=== PATIENT | female | born 1950 | race Caucasian/White ===

== ENCOUNTER 2020-06-10 16:49 | Outpatient (REF) | payer MEDICARE, OTHER, SELFPAY | END 2020-06-10 16:50 | disposition home or self-care (01) | LOC: HO.LNP 16:49 | PROVIDERS: Visit Provider Nurse Practitioner Family | DX: Z20.828 Contact with and (suspected) exposure to other viral communicable diseases (principal) | CPT/HCPCS: U0003 ==

== ENCOUNTER 2020-06-14 13:28 | Inpatient (IN) | payer MEDICARE, OTHER, SELFPAY ==
[2020-06-14] VITALS (20 sets, daily range): BP systolic 81–127; BP diastolic 40–107; PULSE 120–213; RESP 16–24; TEMP 36.6–37; O2SAT 95–100; BMI 26.6; BMI 21.0
--- NOTE | 2020-06-14 15:19 | XR_ITS ---
EXAMINATION: XR CHEST CLINICAL INFORMATION: No history provided. COMPARISON: None TECHNIQUE: Frontal portable view of the chest was obtained. FINDINGS: Devices overlie the patient. Slight tortuosity of the aorta. The cardiac silhouette is slightly globular and mildly prominent. There is no hilar mass. No vascular congestion or edema. No dense consolidation or major zone atelectasis. There is a vague density superimposing over the posterior left 11th rib. This is nonspecific and could overlie the patient. No pleural fluid or pneumothorax. There are osteophytes in the spine. XR/XR chest 1V IMPRESSION: No dense focal pneumonia. No edema. Nonspecific small density superimposes over the posterior left 11th rib on the frontal projection. Possibilities include calcified costal cartilage.
--- NOTE | 2020-06-14 15:19 | ECG_ITS ---
Test Reason : CHEST PAIN Blood Pressure : / mmHG Vent. Rate : 202 BPM Atrial Rate : 250 BPM P-R Int : 000 ms QRS Dur : 082 ms QT Int : 232 ms P-R-T Axes : 000 000 180 degrees QTc Int : 425 ms Atrial fibrillation with rapid ventricular response Nonspecific ST and T wave abnormality Abnormal ECG No previous ECGs available Referred By: Bhavin Cedillo Electronically Signed By:TERESA BRONSON MD
--- NOTE | 2020-06-14 15:19 | ECG_ITS ---
Test Reason : TACHYCARDIA Blood Pressure : / mmHG Vent. Rate : 147 BPM Atrial Rate : 153 BPM P-R Int : 000 ms QRS Dur : 094 ms QT Int : 296 ms P-R-T Axes : 000 008 125 degrees QTc Int : 463 ms Atrial fibrillation with rapid ventricular response Nonspecific ST and T wave abnormality Abnormal ECG When compared with ECG of 14-JUN-2020 15:13, No significant changes seen Heart rate has decreased Referred By: Bhavin Cedillo Electronically Signed By:TERESA BRONSON MD
[2020-06-14 15:26] LABS: Basophils Absolute Auto 0.1 X10*3/uL (0.0-0.2); Basophils Percent Auto 0.2 % (0-2); Hematocrit 34.6 % (37-47); Hemoglobin 11.3 g/dl (12.0-16.0); Imm Gran Abs Auto 0.86 X10*3/uL (0.00-0.03); Lymphocytes Absolute Auto 1.5 X10*3/uL (1.2-4.9); Lymphocytes Percent Auto 5.3 % (20-40); Mean Corpuscular HGB Conc 32.7 g/dl (31.0-35.0); Mean Corpuscular Hemoglobin 30.1 pg (27.0-33.0); Mean Corpuscular Volume 92.3 fL (80-98); Mean Platelet Volume 8.4 fL (9.4-12.3); Monocytes Percent Auto 3.5 % (2-11); Neutrophils Absolute Auto 25.6 X10*3/uL (2.0-8.3); Platelet Count 455 X10*3/uL (160-400); Red Blood Count 3.75 X10*6/uL (4.20-5.50); Red Cell Distribution Width 13.8 % (11.0-16.0); SCAN SMEAR FLAG 1
[2020-06-14 15:27] LABS: MANUAL DIFF FLAG NO
[2020-06-14] MEDS: 0.9 % Sodium Chloride 500 ML 999 ML IVCONT (15:28)
--- NOTE | 2020-06-14 15:31 | PC.NURSE ---
still tachy 200s after 6 and 12 of adenosine. awaiting pharmacy to bring cardizem
[2020-06-14] MEDS: dilTIAZem HCL 50 MG/10 ML VIAL 20 MG IVPUSH ×2 (15:34→15:50)
[2020-06-14] MEDS: dilTIAZem HCL 125 MG in 0.9 % Sodium Chloride 100 ML IVCONT (15:42)
[2020-06-14] MEDS: LORazepam 2 MG/ML VIAL 0.5 MG IVPUSH (16:11)
[2020-06-14 16:13] LABS: Magnesium 2.2 mg/dL (1.6-2.6)
[2020-06-14 16:15] LABS: Alanine Aminotransferase 54 U/L (0-31); Albumin Level 3.2 g/dL (3.5-5.0); Alkaline Phosphatase 483 U/L (39-117); Anion Gap 26 (12-20); Aspartate Amino Transferase 61 U/L (5-31); Bilirubin Direct 0.4 mg/dL (0.0-0.5); Bilirubin Total 0.6 mg/dL (0.0-1.0); Blood Urea Nitrogen 33 mg/dL (9-16); Calcium 8.4 mg/dL (8.4-10.2); Carbon Dioxide 13 mmol/L (22-29); Chloride 98 mmol/L (96-108); Creatinine Clr Calc Pharmacy 40.5; Estimated Glomerular Filt Rate 37; Glucose Random 138 mg/dL (60-115); Potassium 4.7 mmol/l (3.3-5.1); Sodium 132 mmol/L (135-145); Total Protein 7.1 g/dL (6.5-8.0)
[2020-06-14 16:17] LABS: B Type Natriuretic Peptide 1293 pg/mL (<100)
[2020-06-14 16:23] LABS: COVID-19 Test Negative (Negative)
--- NOTE | 2020-06-14 16:25 | PC.NURSE ---
pt medicated per emar. continues rapid a fib in 160-180. aware. aware of elevated trop. states to await cardiology for next step.
--- NOTE | 2020-06-14 16:35 | ED.GENADULT ---
HPI - General Adult General Chief complaint: General Medical Stated complaint: weakness,vomiting Time Seen by Provider: 06/14/20 15:18 Source: patient Mode of arrival: ambulatory Limitations: no limitations History of Present Illness HPI narrative: 69-year-old female walked in with the symptoms of generalized weakness for the past week, patient was seen at urgent care and was tested for COVID test is pending, patient on arrival to the ED found to have tachycardia above 200 beats per minutes, patient was placed on the monitor, patient was given adenosine 6 mg followed by adenosine 12 mg with very short temporary slow down of her heart rate, patient was given Cardizem 20 mg was slow of her heart rate to 160s, repeat Cardizem of 20 mg IV push heart rate still in the 160 EKG showing atrial fibrillation, patient has no chest pain or shortness of breath at this point. Patient was placed on Cardizem drip. Cardiology consult was obtained at this point. Related Data Allergies Allergy/AdvReac Type Severity Reaction Status Date / Time No Known Allergies Allergy Verified 06/14/20 15:18 Review of Systems Review of Systems: All other systems are reviewed and are negative Constitutional: Reports as per HPI and Reports no additional constitutional complaints Eyes: Reports as per HPI and Reports no additional eye complaints Reports system reviewed and no additional complaints, except as documented Cardiovascular: Reports as per HPI and Reports no additional cardiovascular complaints Respiratory: Reports as per HPI and Reports no additional respiratory complaints Gastrointestinal: Reports as per HPI and Reports no additional gastrointestinal complaints Genitourinary: Reports no additional female genitourinary complaints Musculoskeletal: Reports no additional musculoskeletal complaints Skin/Breast: Reports system reviewed and no additional complaints, except as docu Psychiatric: Reports no additional psychiatric complaints Endocrine: Reports no additional endocrine complaints Hematologic/Lymphatic: Reports no additional hematologic/lymphatic complaints Allergic/Immunologic: Reports no additional allergic/immunologic complaints Reports system reviewed and no additional complaints, except as documented and Reports Abnormal speech present [facility] Past Medical History Medical History No known health problems Social History Social History Use of substances other than those prescribed or required for medical reasons: No Advance Directives: No Advance Directives Information Provided: No Physical Exam Vital Signs: Vital Signs: Last Vital Signs Temp 98.5 F 06/14/20 15:19 Pulse 170 H 06/14/20 16:13 Resp 18 06/14/20 16:13 BP 104/60 06/14/20 16:13 Pulse Ox 100 06/14/20 16:13 Body Mass Index 26.6 Vital signs have been reviewed as normal and appeared to be correct. Blood pressure normal. Tachycardia. Respiration rate normal. Temperature normal. Oxygen saturation normal. Appearance: Alert. Oriented X3. Anxious Head: Normal external exam. Normocephalic. Atraumatic. No Escudero signs noted. No raccoon eyes noted Eyes: PERRLA. EOMI. Conjunctiva and sclera normal. Eyelids normal. ENT: EAC normal. TM's Normal. Pharynx normal. Uvula midline. Moist mucous membranes. No trismus noted. No drooling noted. No muffled voice noted. Neck: Normal inspection. Neck supple. FROM. No adenopathy. Thyroid Normal. No meningeal signs. No neck mass noted. CVS: Rapid and irregular heart rate were will the above 200 beats per minutes.. Heart sound normal. No murmurs noted. Pulses normal throughout. Respiratory: No respiratory distress. Painless inspiration. Breath sounds normal. No wheezes/rales/rhonchi noted. Chest nontender. No accessory muscle usage noted or decreased air movement noted. Abdomen: Soft and nontender. Bowel sounds normal in all 4 quadrants. No distention noted. No organomegaly noted. No visible injury noted. Back: No CVA tenderness. Full range of motion noted. Skin: Skin warm and dry. Normal skin color. Normal skin turgor. No rashes/lesions/lacerations noted. Extremities: No lower extremity edema. Extremities exhibit normal range of motion. Extremities nontender. Neuro: Oriented X 3. No motor deficit. No sensory deficit. Reflexes normal. Medical Decision Making MDM Narrative Medical decision making narrative: Assessment and plan. 69-year-old woman presented with symptoms of generalized weakness for the past 5 days and found to have a rapid AFib. 1. Attempt slow down the heart rate used a [place] 6 mg followed by 12 mg, then Cardizem 20 mg x 2 followed by Cardizem drip now she at the maximum of 1 5 milligram/hour patient heart rate is in the 160s,. 2. The case discussed with Dr. Acosta (mechanic general operational test) recommended no immediate cardioversion patient is stable no chest pain and holding blood pressure , recommended 1 dose of Lopressor 25 mg p.o. and load her up with digoxin. And Lovenox. 3. Admit the patient for further cardiology monitoring. Lab Data Lab results narrative: Leukocytosis. Result diagrams: 06/14/20 15:21 06/14/20 15:21 Labs: Lab Results 06/14/20 06/14/20 06/14/20 Range/Units 15:19 15:20 15:21 WBC 29.0 H (4.8-10.8) X10*3/uL RBC 3.75 L (4.20-5.50) X10*6/uL Hgb 11.3 L (12.0-16.0) g/dl Hct 34.6 L (37-47) % MCV 92.3 (80-98) fL MCH 30.1 (27.0-33.0) pg MCHC 32.7 (31.0-35.0) g/dl RDW 13.8 (11.0-16.0) % Plt Count 455 H (160-400) X10*3/uL MPV 8.4 L (9.4-12.3) fL Immature Gran % (Auto) 3.0 H (0.0-0.4) % Neut % (Auto) 88.0 H (45-73) % Lymph % (Auto) 5.3 L (20-40) % [place] % (Auto) 3.5 (2-11) % Eos % (Auto) 0.0 (0-4) % Baso % (Auto) 0.2 (0-2) % Lymph # (Auto) 1.5 (1.2-4.9) X10*3/uL [place] # (Auto) 1.0 (0.1-1.2) X10*3/uL Eos # (Auto) 0.0 (0.0-0.4) X10*3/uL Baso # (Auto) 0.1 (0.0-0.2) X10*3/uL Abs Immat Gran (auto) 0.86 H (0.00-0.03) X10*3/uL Absolute Neuts (auto) 25.6 H (2.0-8.3) X10*3/uL Absolute Nucleated RBC 0.000 (0.0-0.012) X10*3/uL Nucleated RBC % (auto) 0.0 (0.0-0.2) /100WBC Sodium (135-145) mmol/L Potassium (3.3-5.1) mmol/l Chloride (96-108) mmol/L Carbon Dioxide (22-29) mmol/L Anion Gap (12-20) BUN (9-16) mg/dL Creatinine (0.5-1.4) mg/dL Estim Creat Clear Calc Estimated GFR Random Glucose (60-115) mg/dL Calcium (8.4-10.2) mg/dL Magnesium 2.2 (1.6-2.6) mg/dL Total Bilirubin (0.0-1.0) mg/dL Direct Bilirubin (0.0-0.5) mg/dL AST (5-31) U/L ALT (0-31) U/L Alkaline Phosphatase (39-117) U/L Troponin I High Sens 2062.7 H (<3.5-17.0) ng/L B-Natriuretic Peptide 1293 H (<100) pg/mL Total Protein (6.5-8.0) g/dL Albumin (3.5-5.0) g/dL COVID-19 (POLI) (Negative) COVID-19 Clin Com 06/14/20 06/14/20 Range/Units 15:21 15:40 WBC (4.8-10.8) X10*3/uL RBC (4.20-5.50) X10*6/uL Hgb (12.0-16.0) g/dl Hct (37-47) % MCV (80-98) fL MCH (27.0-33.0) pg MCHC (31.0-35.0) g/dl RDW (11.0-16.0) % Plt Count (160-400) X10*3/uL MPV (9.4-12.3) fL Immature Gran % (Auto) (0.0-0.4) % Neut % (Auto) (45-73) % Lymph % (Auto) (20-40) % [place] % (Auto) (2-11) % Eos % (Auto) (0-4) % Baso % (Auto) (0-2) % Lymph # (Auto) (1.2-4.9) X10*3/uL [place] # (Auto) (0.1-1.2) X10*3/uL Eos # (Auto) (0.0-0.4) X10*3/uL Baso # (Auto) (0.0-0.2) X10*3/uL Abs Immat Gran (auto) (0.00-0.03) X10*3/uL Absolute Neuts (auto) (2.0-8.3) X10*3/uL Absolute Nucleated RBC (0.0-0.012) X10*3/uL Nucleated RBC % (auto) (0.0-0.2) /100WBC Sodium 132 L (135-145) mmol/L Potassium 4.7 (3.3-5.1) mmol/l Chloride 98 (96-108) mmol/L Carbon Dioxide 13 L (22-29) mmol/L Anion Gap 26 H (12-20) BUN 33 H (9-16) mg/dL Creatinine 1.42 H (0.5-1.4) mg/dL Estim Creat Clear Calc 40.5 Estimated GFR 37 Random Glucose 138 H (60-115) mg/dL Calcium 8.4 (8.4-10.2) mg/dL Magnesium (1.6-2.6) mg/dL Total Bilirubin 0.6 (0.0-1.0) mg/dL Direct Bilirubin 0.4 (0.0-0.5) mg/dL AST 61 H (5-31) U/L ALT 54 H (0-31) U/L Alkaline Phosphatase 483 H (39-117) U/L Troponin I High Sens (<3.5-17.0) ng/L B-Natriuretic Peptide (<100) pg/mL Total Protein 7.1 (6.5-8.0) g/dL Albumin 3.2 L (3.5-5.0) g/dL COVID-19 (POLI) Negative (Negative) COVID-19 Clin Com See Note Imaging Data Chest x-ray: Radiologist's impression: No dense focal pneumonia. No edema. Nonspecific small density superimposes over the posterior left 11th rib on the frontal projection. Possibilities include calcified costal cartilage. ECG Data Interpretation: Atrial fibrillation with rapid ventricular response of 20 2 beats per minutes, no acute ischemic changes. Critical Care Time Critical Care Time Critical Care Time: Yes Total Critical Care Time: 120 Attestation: I spent 120 minutes at the bedside providing critical care level, including administering IV medication to control heart rate (multiple doses and keep monitoring the patient close), checking labs to check an x-ray, consulting mechanic general operational test, talking to the patient, reviewing patient information. Discharge Plan Discharge Clinical Impression: Weakness, Atrial fibrillation with rapid ventricular response Patient Disposition: Admitted As Inpatient
[2020-06-14] MEDS: Metoprolol Tartrate 25 MG TABLET PO (17:17)
[2020-06-14] MEDS: Digoxin 0.5 MG/2 ML AMPUL 0.25 MG IVPUSH (17:17)
[2020-06-14] MEDS: Enoxaparin Sodium 100 MG/ML SYRINGE 75 MG SUBCUT (17:17)
--- NOTE | 2020-06-14 17:59 | PC.NURSE ---
spoke with hospitalist. give 1l ns. aware of 2.5l ns given per md matthews. aware only order for 500ml was placed in computer.
[2020-06-14 18:11] LABS: Hematocrit 27.6 % (37-47); Mean Corpuscular HGB Conc 32.6 g/dl (31.0-35.0); Mean Corpuscular Hemoglobin 30.5 pg (27.0-33.0); Mean Corpuscular Volume 93.6 fL (80-98); Mean Platelet Volume 8.4 fL (9.4-12.3); Platelet Count 308 X10*3/uL (160-400); Red Blood Count 2.95 X10*6/uL (4.20-5.50); Red Cell Distribution Width 13.7 % (11.0-16.0); White Blood Count 24.9 X10*3/uL (4.8-10.8)
[2020-06-14 18:21] LABS: INTERNATIONAL NORM RATIO 1.3 (0.9-1.1); Prothrombin Time 15.7 SEC (10.8-13.0)
[2020-06-14 18:24] LABS: Partial Thromboplastin Time 37.3 SEC (24.1-38.0)
[2020-06-14 18:32] LABS: Ethanol < 10 mg/dL
[2020-06-14] MEDS: 0.9 % Sodium Chloride 1,000 ML 999 ML IVCONT (18:33)
[2020-06-14 18:54] LABS: Thyroid Stimulating Hormone 1.31 uIU/mL (0.32-4.0)
--- NOTE | 2020-06-14 19:19 | P.HPHOSP_ITS ---
History of Present Illness Date of Service: 06/14/20 <ANABEL Perez - Last Filed: 06/14/20 19:51> Chief Complaint: generalized weakness <ANABEL Perez - Last Filed: 06/14/20 19:51> this is a 69-year-old female who has not seen a physician in the past 10 years who presents to the emergency department with generalized weakness. She has been feeling queasy with generalized malaise. She has had decreased p.o. intake but has been able to tolerate fluid. She denies any chest pain, palpi tations, dizziness, abdominal pain, diarrhea, fever, chills. she traveled to the [facility] almost 1 month ago otherwise no recent travel. She denies any recent sick contacts. She does report some low back pain. Denies any urinary sympoms. She was seen 06/10 in the outpatient clinic for the same. At that time her heart rate was noted to be in the 48. Today on arrival she was noted to be significantly tachycardic with a heart rate over 200. She received 2 doses of adenosine and atrial fibrillation with rapid ventricular response was revealed. she was given bolus doses of IV Cardizem and then started on Cardizem drip. She was then given a dose of oral metoprolol as well as digoxin. Her heart rate remained fluctuating between the 140s and 170s. Her lab work also revealed leukocytosis of 29,000, H/ H of 11.3/34.6, creatinine 1.42 with an anion gap of 26 and bicarb of 13. LFTs were mildly elevated and alk-phos was 483. Troponin was to 2062.7 and BNP 1239. chest x-ray was unremarkable. patient's blood pressure has remained soft in the 90s. <ANABEL Perez - Last Filed: 06/14/20 19:51> Review of Systems Review of Systems: Yes all other systems are reviewed and are negative <ANABEL Perez - Last Filed: 06/14/20 19:51> Constitutional: Constitutional: Reports fatigue, Denies headache(s), Reports malaise and Reports poor appetite <ANABEL Perez - Last Filed: 06/14/20 19:51> ENT: Denies dizziness and Denies headache(s) <ANABEL Perez Last Filed: 06/14/20 19:51> Cardiovascular: Cardiovascular: Denies syncope, Denies leg edema, Denies palpitations, Denies dyspnea, Denies dyspnea on exertion and Denies paroxysmal nocturnal dyspnea <ANABEL Perez - Last Filed: 06/14/20 19:51> Respiratory: Respiratory: Denies cough, Denies dyspnea and Denies dyspnea on exertion <ANABEL Perez - Last Filed: 06/14/20 19:51> Gastrointestinal: Gastrointestinal: Denies diarrhea and Reports nausea <ANABEL Perez - Last Filed: 06/14/20 19:51> Genitourinary: Genitourinary: Denies difficulty voiding, Denies urinary incontinence, Denies urinary hesitancy and Denies urinary urgency <ANABEL Perez - Last Filed: 06/14/20 19:51> Neurologic: Denies dizziness, Denies syncope and Denies headache(s) <ANABEL Perez - Last Filed: 06/14/20 19:51> Endocrine: Endocrine: Reports fatigue and Denies palpitations <ANABEL Perez - Last Filed: 06/14/20 19:51> [facility] Medical History: Medical History No known health problems <ANABEL Perez - Last Filed: 06/14/20 19:51> Functional capacity: independent ambulation <ANABEL Perez - Last Filed: 06/14/20 19:51> Pertinent family history: mother at a young age <ANABEL Perez - Last Filed: 06/14/20 19:51> Surgical History: Surgical History No history of previous surgery <ANABEL Perez Last Filed: 06/14/20 19:51> Social History: Social History Household Members: Spouse Housing: House Do you presently have visiting nurse or other home services: No Alcohol intake: current Alcohol intake frequency: 3 or more drinks per day Alcohol type: wine Smoking Status: Never smoker Use of substances other than those prescribed or required for medical reasons: No Have you been hit, kicked, punched, or otherwise hurt by someone within the past year? If so, by whom?: No Do you feel safe in your current relationship?: Yes Is there a partner from a previous relationship who is making you feel unsafe now?: No Are you made to feel afraid or neglected: No Advance Directives: No Advance Directives Information Provided: No Do you have thoughts of harming others: None Do you have a plan to hurt others: No Plan Recently lost weight without trying: No service: No Current occupational status: retired <ANABEL Perez - Last Filed: 06/14/20 19:51> Meds Allergies/Adverse reactions: Allergies Allergy/AdvReac Type Severity Reaction Status Date / Time No Known Allergies Allergy Verified 06/14/20 15:18 <ANABEL Perez Last Filed: 06/14/20 19:51> Physical Exam Vital Signs and Narrative: Vital Signs: Last Vital Signs Temp 98.5 F 06/14/20 15:19 Pulse 120 H 06/14/20 18:33 Resp 16 06/14/20 17:48 BP 91/61 06/14/20 18:33 Pulse Ox 97 06/14/20 18:33 Body Mass Index 26.6 <ANABEL Perez Last Filed: 06/14/20 19:51> Const: Nutritional Appearance: well nourished <ANABEL Perez Last Filed: 06/14/20 19:51> Orientation/consciousness: patient oriented x3 <ANABEL Perez Last Filed: 06/14/20 19:51> HENMT: Head: Yes normocephalic and Yes atraumatic <ANABEL Perez Last Filed: 06/14/20 19:51> Eyes: Sclerae: sclerae normal <ANABEL Perez Last Filed: 06/14/20 19:51> Chest: Chest palpation & inspection: normal inspection of the chest <ANABEL Perez Last Filed: 06/14/20 19:51> Resp: Effort & Inspection: normal respiratory effort and no respiratory distress <ANABEL Perez - Last Filed: 06/14/20 19:51> Auscultation: clear to auscultation bilaterally <ANABEL Perez - Last Filed: 06/14/20 19:51> Cardio: Rate: tachycardic <ANABEL Perez - Last Filed: 06/14/20 19:51> Rhythm: abnormal rhythm irregularly irregular <ANABEL Perez - Last Filed: 06/14/20 19:51> GI: Palpation (GI): Soft to palpation and nontender <ANABEL Perez - Last Filed: 06/14/20 19:51> Skin: General skin exam: no rashes or lesions noted <ANABEL Perez - Last Filed: 06/14/20 19:51> Neuro: General: patient oriented x3 <ANABEL Perez - Last Filed: 06/14/20 19:51> Cranial nerves: Yes CN's II-XII intact bilaterally and Yes Bilaterally intact EOM present <ANABEL Perez - Last Filed: 06/14/20 19:51> Extrem: General: Yes normal to inspection <ANABEL Perez - Last Filed: 06/14/20 19:51> Results Labs CBC and Chem 7: : 06/15/20 04:42 06/15/20 04:42 <ANABEL Perez - Last Filed: 06/14/20 19:51> Labs: Laboratory Results - last 24 hr 06/14/20 06/14/20 06/14/20 15:19 15:20 15:21 MCV 92.3 MCH 30.1 MCHC 32.7 RDW 13.8 Plt Count 455 H MPV 8.4 L Immature Gran % (Auto) 3.0 H Neut % (Auto) 88.0 H Lymph % (Auto) 5.3 L [place] % (Auto) 3.5 Eos % (Auto) 0.0 Baso % (Auto) 0.2 Lymph # (Auto) 1.5 [place] # (Auto) 1.0 Eos # (Auto) 0.0 Baso # (Auto) 0.1 Abs Immat Gran (auto) 0.86 H Absolute Neuts (auto) 25.6 H Absolute Nucleated RBC 0.000 Nucleated RBC % (auto) 0.0 PT INR APTT Anion Gap Estim Creat Clear Calc Estimated GFR Random Glucose Calcium Magnesium 2.2 Total Bilirubin Direct Bilirubin AST ALT Alkaline Phosphatase Troponin I High Sens 2062.7 H B-Natriuretic Peptide 1293 H Total Protein Albumin TSH Ethyl Alcohol COVID-19 ([facility]I) COVID-19 Clin Com 06/14/20 06/14/20 06/14/20 15:21 15:40 18:03 MCV MCH MCHC RDW Plt Count MPV Immature Gran % (Auto) Neut % (Auto) Lymph % (Auto) [place] % (Auto) Eos % (Auto) Baso % (Auto) Lymph # (Auto) [place] # (Auto) Eos # (Auto) Baso # (Auto) Abs Immat Gran (auto) Absolute Neuts (auto) Absolute Nucleated RBC Nucleated RBC % (auto) PT 15.7 H INR 1.3 H APTT 37.3 Anion Gap 26 H Estim Creat Clear Calc 40.5 Estimated GFR 37 Random Glucose 138 H Calcium 8.4 Magnesium Total Bilirubin 0.6 Direct Bilirubin 0.4 AST 61 H ALT 54 H Alkaline Phosphatase 483 H Troponin I High Sens B-Natriuretic Peptide Total Protein 7.1 Albumin 3.2 L TSH 1.31 Ethyl Alcohol COVID-19 ([facility]I) Negative COVID-Scripted Clin Com See Note 06/14/20 06/14/20 18:06 18:15 MCV 93.6 MCH 30.5 MCHC 32.6 RDW 13.7 Plt Count 308 D MPV 8.4 L Immature Gran % (Auto) Neut % (Auto) Lymph % (Auto) [place] % (Auto) Eos % (Auto) Baso % (Auto) Lymph # (Auto) [place] # (Auto) Eos # (Auto) Baso # (Auto) Abs Immat Gran (auto) Absolute Neuts (auto) Absolute Nucleated RBC 0.000 Nucleated RBC % (auto) 0.0 PT INR APTT Anion Gap Estim Creat Clear Calc Estimated GFR Random Glucose Calcium Magnesium Total Bilirubin Direct Bilirubin AST ALT Alkaline Phosphatase Troponin I High Sens B-Natriuretic Peptide Total Protein Albumin TSH Ethyl Alcohol < 10 COVID-19 ([facility]I) COVID-19 Clin Com <ANABEL Perez - Last Filed: 06/14/20 19:51> Imaging Radiologist's Impressions: Impressions Chest X-Ray 06/14/20 15:19 IMPRESSION: No dense focal pneumonia. No edema. Nonspecific small density superimposes over the posterior left 11th rib on the frontal projection. Possibilities include calcified costal cartilage. <ANABEL Perez - Last Filed: 06/14/20 19:51> Assessment and Plan (1) Atrial fibrillation with rapid ventricular response: Status: Acute <ANABEL Perez - Last Filed: 06/14/20 19:51> (2) Renal insufficiency: Status: Acute <ANABEL Perez - Last Filed: 06/14/20 19:51> (3) High anion gap metabolic acidosis: Status: Acute <ANABEL Perez - Last Filed: 06/14/20 19:51> (4) Elevated LFTs: Status: Acute <ANABEL Perez - Last Filed: 06/14/20 19:51> (5) Leukocytosis: Status: Acute <ANABEL Perez - Last Filed: 06/14/20 19:51> This is a 69-year-old female with no known past medical history who has not sought medical care in the past 10 years who presents to the emergency department with generalized weakness found to have rapid atrial fibrillation and multiple other lab abnormalities atrial fibrillation with rapid ventricular response. blood pressure soft in low 90s s/p dig bolus x2, metoprolol po and digoxin in ED on max Cardizem drip -given therapeutic lovenox -tsh, mag pending -echo -cardiology consult Anion gap metabolic acidosis lactic acid, etoh level, aspirin levels pending denies toxic ingestion tox screen pending -repeat BMP now elevated trop no chest pain likely demand r/t rapid afib repeat trop pending elevated BNP clinically does not appear to be in heart failure -echo -cardiology evaluation renal insufficiency no baseline, unclear if this represents chronic kidney disease or AMILCAR -IVF, follow renal function leukocytosis check blood cultures, lactic acid pending CXR neg, UA pending covid neg -empiric abx ordered elevated lft no abdominal pain ? r/t etoh use follow LFTs etoh use initially reported 2-3 glasses of wine daily, but then said no etoh x 4 weeks. does not appear to be in etoh withdrawal dvt ppx - given 1 dose of therapeutic lovenox code status - full code This case was discussed with Dr. Tate Due to patient soft blood pressure and ongoing heart rate fluctuating between 140s and 170s the case was discussed with both Dr. Guadalupe of cardiology and Dr. Holder. Suggested septic workup, IVF. If patient remains hemodynamically unstable should go to icu for close monitoring. <ANABEL Perez - Last Filed: 06/14/20 19:51>
[2020-06-14] MEDS: Piperacillin Sodium/Tazobactam 3.375 GM in 0.9 % Sodium Chloride 50 ML IV (19:20)
[2020-06-14 19:35] LABS: Lactic Acid 1.3 mmol/L (0.5-2.0)
[2020-06-14] MEDS: vancomycin HCL 1,000 MG in 0.9 % Sodium Chloride 250 ML 270 MG IV (19:50)
[2020-06-14 19:53] LABS: Anion Gap 18 (12-20); Blood Urea Nitrogen 27 mg/dL (9-16); Carbon Dioxide 14 mmol/L (22-29); Chloride 105 mmol/L (96-108); Creatinine Clr Calc Pharmacy 60.6; Estimated Glomerular Filt Rate 58; Glucose Random 113 mg/dL (60-115); Potassium 4.4 mmol/l (3.3-5.1); Sodium 133 mmol/L (135-145)
[2020-06-14 19:56] LABS: Glucose Urine UA NEG (NEG); Leukocyte Esterase Urine NEG (NEG); Nitrite Urine NEG (NEG); PH 5.5 (5.0-8.0); Specific Gravity - Urine 1.025 (1.005-1.025); Urine Blood 2+ (NEG); Urine Ketones 15 MG/DL (NEG); Urine Protein 1+ MG/DL (NEG-TRACE)
[2020-06-14 19:59] LABS: Appearance Urine CLEAR; Color Urine DARK YELLOW
[2020-06-14 20:05] LABS: Gamma Glutamyl Transpeptidase 475 U/L (7-33)
[2020-06-14 20:05] LABS: Calcium 7.2 mg/dL (8.4-10.2)
[2020-06-14 20:06] LABS: Amorphous Sediment Urine TRACE /LPF; Hyaline Casts Urine 0-2 /LPF; Squamous Epithelial Cell Urine 1+ /LPF
[2020-06-14 20:15] LABS: Amphetamine Screen Urine Not Detected (Not Detect); Barbiturates, Urine Not Detected (Not Detect); Benzodiazepines Screen Urine Not Detected (Not Detect); Cannabinoid Screen Urine Not Detected (Not Detect); Cocaine Screen Urine Not Detected (Not Detect); Opiate Screen Urine Not Detected (Not Detect); Phencyclidine Screen Urine Not Detected (Not Detect)
[2020-06-14 20:18] LABS: Salicylate < 5.0 mg/dL (15-30)
--- NOTE | 2020-06-14 20:59 | PC.NURSE ---
HOSPITALIST STATES THAT IT IS OKAY FOR PATIENT TO HAVE PO FLUIDS. PATIENT REQUESTING WATER AT THIS TIME. PT IS ANXIOUS, TEARFUL, BUT COOPERATIVE. AWAITING BED ASSIGNMENT. REPOSITIONED TO RIGHT SIDE. DILTIAZAM CONTINUES TO INFUSE ORDERED.
--- NOTE | 2020-06-14 21:45 | PC.NURSE ---
PATIENT REPORTS ABDOMINAL PAIN. STATES I HAVEN'T POOPED IN A WHILE . AND HOSPITALIST NOTIFIED AND AWARE. HOSPITALIST STATES PAIN IS CHRONIC . PLAN TO ADMIT PATIENT TO [facility]MC. AWAITING BED ASSIGNMENT. PT REMAINS ANXIOUS, WORSE WHEN ANY MEDICAL PROVIDER IS AT BEDSIDE. HR 110-130 WHEN PROVIDER IS NOT IN ROOM, 130-140 WHEN PROVIDER IS IN THE ROOM. AFIB. PT INTERMITTENTLY TEARFUL, BUT COOPERATIVE WITH STAFF. WILL CONTINUE TO MONITOR.
--- NOTE | 2020-06-14 22:04 | PC.NURSE ---
RN TO RN REPORT GIVEN TO PEYMAN ECHEVERRIA. PREPARING FOR ADMISSION/TRANSFER TO [facility].
[2020-06-14] MEDS: dilTIAZem HCL 125 MG in 0.9 % Sodium Chloride 100 ML 15 MG IVCONT (22:54)
[2020-06-14] MEDS: 0.9 % Sodium Chloride Flush 3 ML SYRINGE IVFLUSH (23:33)
[2020-06-14] MEDS: Lactulose 20 GM/30 ML SOLUTION 10 GM PO (23:36)
[2020-06-15] VITALS (15 sets, daily range): BP systolic 96–130; BP diastolic 55–86; PULSE 56–165; RESP 18–22; TEMP 36.4–37.9; O2SAT 90–97
--- NOTE | 2020-06-15 | CT_ITS ---
EXAMINATION: CT ABDOMEN AND PELVIS WITH CONTRAST CLINICAL INFORMATION: Sepsis. No source of infection. COMPARISON: None TECHNIQUE: Multidetector volumetric images were obtained from the superior aspect of the liver through the pubic symphysis following administration 85 mL of Omnipaque 350 intravenous contrast. Sagittal and coronal reformatted images were obtained on the technologist's workstation. Oral contrast: No This CT examination was performed using dose optimization techniques as appropriate, variously including the following: *Automated exposure control *Adjustment of mA and/or kV according to patient size (this includes techniques or standardized protocols for targeted exams where dose is matched to indication/reason for exam; i.e. extremities or head) *Use of iterative reconstruction technique DLP: 410 mGy-cm FINDINGS: LUNG BASES: There is a small right pleural effusion with right basilar atelectasis. Trace left pleural effusion with minimal left basilar atelectasis. Coronary artery calcifications. Mitral annular calcifications. Heavy aortic valvular calcification noted. LIVER, GALLBLADDER, AND BILIARY TREE: The liver is normal in size, shape, and attenuation. No focal hepatic lesion or intrahepatic biliary ductal dilatation is present. Mild periportal edema in the right lobe noted. Distended gallbladder. Mild stranding seen near the gallbladder. Questionable gallbladder wall thickening. No gallstones are seen. Mildly prominent common bile duct measuring 0.9 cm. No ductal filling defect. PANCREAS: Unremarkable. SPLEEN: Unremarkable. ADRENAL GLANDS: Unremarkable. KIDNEYS AND URETERS: The kidneys are normal in size, shape, and attenuation. No hydronephrosis, hydroureter, or calculi seen. No perinephric stranding. BLADDER: Unremarkable. GASTROINTESTINAL TRACT: The stomach is decompressed with no gross abnormality. The small bowel is normal in caliber. No small bowel wall thickening. Fluid-filled appearance of the distal small bowel does not appear obstructive. There is fluid-filled distention of the cecum with fluid, stool, and gas throughout the colon. Much of the distal colon is decompressed. Colonic diverticulosis noted without diverticulitis. There is a normal appendix. No free air. Small volume of pelvic free fluid. ABDOMINAL WALL: No significant hernia. Mild anasarca. LYMPH NODES: Normal. VASCULAR: Normal caliber aorta. Mild atherosclerotic calcification. PELVIC VISCERA: The uterus and adnexa are unremarkable. OSSEOUS STRUCTURES: No acute or suspicious osseous abnormality. Moderate multilevel degenerative changes throughout the spine. Multilevel vacuum disc phenomenon. CT/CT abdomen pelvis w con IMPRESSION: Distended gallbladder with questionable wall thickening and mild stranding in the adjacent fat. Although no gallstones are seen, cannot exclude gallbladder pathology. Consider further evaluation with ultrasound. No ductal filling defect. There is mild dilatation of the common bile duct. Small right and trace left pleural effusions with bibasilar atelectasis. Fluid throughout nondilated small and large bowel. No definite bowel wall thickening. There is no obstruction.
--- NOTE | 2020-06-15 | US_ITS ---
EXAMINATION: US ABDOMEN LIMITED, gallbladder only CLINICAL INFORMATION: Acute cholecystitis.. COMPARISON: CT scan pelvis today. TECHNIQUE: Real-time imaging of the gallbladder. FINDINGS: There is gallbladder wall thickening measuring 0.6 cm. There is trace pericholecystic fluid. Multiple gallstones layer dependently in the gallbladder with strong posterior acoustic shadowing. Findings concerning for an acute cholecystitis. At the fundus of the gallbladder in the nondependent wall there is ringdown artifact which may be due to adenomyosis. Common duct measures 0.8 cm in diameter. No gallstone identified in the visualized portions of the CBD. There is a small right pleural effusion US/US abdomen limited IMPRESSION: 1. Cholelithiasis. Gallbladder wall thickening and pericholecystic fluid consistent with acute cholecystitis. 2. Dilated common bile duct measuring 0.8 cm. No gallstone seen within the CBD.
[2020-06-15] MEDS: Digoxin 0.5 MG/2 ML AMPUL 0.25 MG IVPUSH ×2 (00:27→02:57)
[2020-06-15] MEDS: Piperacillin Sodium/Tazobactam 3.375 GM in 0.9 % Sodium Chloride 50 ML IV ×4 (00:37→18:03)
[2020-06-15] MEDS: dilTIAZem HCL 125 MG in 0.9 % Sodium Chloride 100 ML 15 MG IVCONT ×2 (03:00→11:10)
--- NOTE | 2020-06-15 03:11 | PC.NURSE ---
Addendum entered by Esvin Lantigua RN 06/15/20 05:08: hr remained elevated 140's-150's...hospitalist updated...lopressor 5mg iv x1 per md...to monitor response...cardiology to see in am..no further treatment of hr if patient asymptomatic per md Original Note: CARE ASSUMED 23:15...AWAKE..ALERT..ORIENTED X3...RESPIRATIONS EASY...NO DISTRESS..MILDLY ANXIOUS...PREVIOUSLY RECEIVED ATIVAN AT HS....REMAINS ATRIAL FIB H4 140'S-150'S..CARDIZEM DRIP REMAINS 15 MG/HR...DR INTERIANO UPDATED AT HS...DIGOXIN 0.25 MG IV GIVEN APPROX 00:30....02:30 MONITOR REMAINS ATRIAL FIB HR 140'S-150'S...ASYMPTOMATIC...MD UPDATED...REPEAT DIGOXIN 0.25 MG IV GIVEN...PER MD TO ASSESS/NOTIFY OF HR RESPONSE IN 1 1/2-2 HOURS...MD WILL RECONSULT CARDIOLOGY IF NO CHANGE IN HR...LACTULOSE PO GIVEN AT HS PER MAR FOR C/O CONSTIPATION /BLOATED FEELING LOWER ABDOMEN...STATED ABLE TO NAP INTERMITTANTLY OVERNIGHT...CARDIZEM DRIP CONTINUES 15 MG/HR...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
[2020-06-15] MEDS: Metoprolol Tartrate 5 MG/5 ML VIAL IVPUSH (04:57)
[2020-06-15] MEDS: Heparin Sodium,Porcine 5,000 UNIT/ML VIAL 5000 UNIT SUBCUT (04:58)
[2020-06-15 05:19] LABS: Basophils Percent Auto 0.1 % (0-2); Hematocrit 26.5 % (37-47); Hemoglobin 8.8 g/dl (12.0-16.0); Imm Gran Abs Auto 0.57 X10*3/uL (0.00-0.03); Imm Gran Pct Auto 2.3 % (0.0-0.4); Lymphocytes Percent Auto 3.9 % (20-40); MANUAL DIFF FLAG SCAN; Mean Corpuscular HGB Conc 33.2 g/dl (31.0-35.0); Mean Corpuscular Hemoglobin 30.9 pg (27.0-33.0); Mean Platelet Volume 8.6 fL (9.4-12.3); Monocytes Absolute Auto 1.3 X10*3/uL (0.1-1.2); Monocytes Percent Auto 5.1 % (2-11); Neutrophils Absolute Auto 21.7 X10*3/uL (2.0-8.3); Neutrophils Percent Auto 88.6 % (45-73); Platelet Count 367 X10*3/uL (160-400); Red Blood Count 2.85 X10*6/uL (4.20-5.50); Red Cell Distribution Width 13.8 % (11.0-16.0); SCAN SMEAR FLAG 1; White Blood Count 24.5 X10*3/uL (4.8-10.8)
[2020-06-15 05:48] LABS: SLIDE REVIEW VERIFIED
[2020-06-15 06:05] LABS: Alanine Aminotransferase 117 U/L (0-31); Albumin Level 2.5 g/dL (3.5-5.0); Alkaline Phosphatase 725 U/L (39-117); Anion Gap 19 (12-20); Aspartate Amino Transferase 140 U/L (5-31); Bilirubin Direct 0.4 mg/dL (0.0-0.5); Bilirubin Total 0.6 mg/dL (0.0-1.0); Blood Urea Nitrogen 25 mg/dL (9-16); Calcium 7.3 mg/dL (8.4-10.2); Carbon Dioxide 13 mmol/L (22-29); Chloride 105 mmol/L (96-108); Creatinine Clr Calc Pharmacy 60.9; Estimated Glomerular Filt Rate > 60; Glucose Random 117 mg/dL (60-115); Potassium 4.5 mmol/l (3.3-5.1); Sodium 132 mmol/L (135-145); Total Protein 5.5 g/dL (6.5-8.0)
[2020-06-15 06:23] LABS: Thyroid Stimulating Hormone 0.68 uIU/mL (0.32-4.0)
--- NOTE | 2020-06-15 06:40 | PC.NURSE ---
previously c/o constipation and received lactulose at hs...oob this am...passed watery brown stool...remains atrial fib...za=672's-140's post iv lopressor...asymptpmatic
--- NOTE | 2020-06-15 08:58 | MHC.CM.PN ---
CM met with Patient. Patient lives in a house with her and is functionally independent.Patient's goal is to return home and CM has initiated and will follow for dc planning. Patient does not used O2 @ home. IMM addressed with Patient and the original has been given to her and a copy has been placed on the chart. Patient is actively looking for a PCP.
[2020-06-15] MEDS: Metoprolol Tartrate 50 MG TABLET PO ×4 (09:02→21:34)
[2020-06-15] MEDS: Digoxin 0.25 MG TABLET PO (09:02)
[2020-06-15] MEDS: 0.9 % Sodium Chloride Flush 3 ML SYRINGE IVFLUSH ×2 (09:02→23:44)
[2020-06-15] MEDS: 0.9 % Sodium Chloride 1,000 ML 100 ML IVCONT ×2 (09:25→19:03)
[2020-06-15] MEDS: Acetaminophen 325 MG TABLET 650 MG PO ×2 (09:28→20:13)
[2020-06-15] MEDS: Heparin Sodium,Porcine/1/2NS 25,000 UNIT/250 ML IV.SOLN 7.32 UNIT IVCONT (10:03)
[2020-06-15] MEDS: vancomycin HCL 750 MG in 0.9 % Sodium Chloride 250 ML 265 MG IV (10:07)
--- NOTE | 2020-06-15 10:13 | PM.CNCAR ---
History of Present Illness History of Present Illness Date of Consult: June 15, 2020 Consult reason: atrial fibrillation Chief complaint: Afib with rvr Narrative: This is a cardiology consultation regarding atrial fibrillation. She has not really seen a doctor in many years. No known cardiac problems like coronary disease or myocardial infarction or cardiomyopathy. For the last few weeks she has not been feeling good. Nonspecific complaints including generalized malaise and tiredness and fatigue. However no clear cardiac symptoms like angina or palpitations or syncopal episodes. No clear sick contacts as well. She was evaluated in the ER and found to have significant tachycardia with heart rates almost near 200 per. Had received adenosine but then the rhythm was felt to be rather atrial fibrillation. Subsequently put on a Cardizem drip. She continues to have a rapid rate. Her remainder of workup has shown suggestions of infection but so far no clear etiology identified. Review of Systems Review of Systems: Cardiac is negative for angina, shortness of breath, palpitations or dizzy spells or syncopal episodes. Constitutional positive for malaise and fatigue. Remainder of the 10 system review negative. [facility] Past Medical History Medical History No known health problems Functional capacity: independent ambulation Family History Pertinent family history: No significant family history pertinent to cardiac. Surgical History Surgical History No history of previous surgery Social History Social History Household Members: Spouse Housing: House Do you presently have visiting nurse or other home services: No Alcohol intake: current Alcohol intake frequency: 3 or more drinks per day Alcohol type: wine Smoking Status: Never smoker Use of substances other than those prescribed or required for medical reasons: No Have you been hit, kicked, punched, or otherwise hurt by someone within the past year? If so, by whom?: No Do you feel safe in your current relationship?: Yes Is there a partner from a previous relationship who is making you feel unsafe now?: No Are you made to feel afraid or neglected: No Advance Directives: No Advance Directives Information Provided: No Do you have thoughts of harming others: None Do you have a plan to hurt others: No Plan Recently lost weight without trying: No service: No Current occupational status: retired Meds Allergies Allergy/AdvReac Type Severity Reaction Status Date / Time No Known Allergies Allergy Verified 06/14/20 15:18 Physical Exam Vital Signs: Vital Signs: Last Vital Signs Temp 98.7 F 06/15/20 08:00 Pulse 165 H 06/15/20 09:02 Resp 22 H 06/15/20 08:00 BP 99/68 06/15/20 09:02 Pulse Ox 95 06/15/20 08:00 Body Mass Index 21.0 Comfortable, no distress No pallor, icterus or cyanosis HEENT -unremarkable JVD- normal Cardiac- normal heart sounds, no murmurs, gallops or rubs, normal PMI Respiratory-normal breath sounds bilaterally, no crackles, no wheeze Abdomen- soft, nontender Neuro- alert and oriented Lower extremities- no significant edema, warm well perfused Results Labs and Meds Result diagrams: 06/15/20 04:42 06/15/20 04:42 Lab results: Laboratory Results - last 24 hr 06/14/20 06/14/20 06/14/20 15:19 15:20 15:21 WBC 29.0 H RBC 3.75 L Hgb 11.3 L Hct 34.6 L MCV 92.3 MCH 30.1 MCHC 32.7 RDW 13.8 Plt Count 455 H MPV 8.4 L Immature Gran % (Auto) 3.0 H Neut % (Auto) 88.0 H Lymph % (Auto) 5.3 L Trimble % (Auto) 3.5 Eos % (Auto) 0.0 Baso % (Auto) 0.2 Lymph # (Auto) 1.5 Trimble # (Auto) 1.0 Eos # (Auto) 0.0 Baso # (Auto) 0.1 Abs Immat Gran (auto) 0.86 H Absolute Neuts (auto) 25.6 H Absolute Nucleated RBC 0.000 Nucleated RBC % (auto) 0.0 Smear Tech's Comments PT INR APTT Sodium Potassium Chloride Carbon Dioxide Anion Gap BUN Creatinine Estim Creat Clear Calc Estimated GFR Random Glucose Lactic Acid Calcium Magnesium 2.2 Total Bilirubin Direct Bilirubin GGT AST ALT Alkaline Phosphatase Troponin I High Sens 2062.7 H B-Natriuretic Peptide 1293 H Total Protein Albumin TSH Urine Color Urine Appearance Urine pH Ur Specific Morral Urine Protein Urine Glucose (UA) Urine Ketones Urine Blood Urine Nitrite Ur Leukocyte Esterase Urine RBC Urine WBC Ur Squamous Epith Cells Amorphous Sediment Urine Bacteria Hyaline Casts Salicylates Urine Opiates Screen Ur Barbiturates Screen Ur Phencyclidine Scrn Ur Amphetamines Screen U Benzodiazepines Scrn Urine Cocaine Screen U Marijuana (THC) Screen Ethyl Alcohol COVID-19 (POLI) COVID-19 Clin Com 06/14/20 06/14/20 06/14/20 15:21 15:40 18:03 WBC RBC Hgb Hct MCV MCH MCHC RDW Plt Count MPV Immature Gran % (Auto) Neut % (Auto) Lymph % (Auto) Trimble % (Auto) Eos % (Auto) Baso % (Auto) Lymph # (Auto) Trimble # (Auto) Eos # (Auto) Baso # (Auto) Abs Immat Gran (auto) Absolute Neuts (auto) Absolute Nucleated RBC Nucleated RBC % (auto) Smear Tech's Comments PT 15.7 H INR 1.3 H APTT 37.3 Sodium 132 L Potassium 4.7 Chloride 98 Carbon Dioxide 13 L Anion Gap 26 H BUN 33 H Creatinine 1.42 H Estim Creat Clear Calc 40.5 Estimated GFR 37 Random Glucose 138 H Lactic Acid Calcium 8.4 Magnesium Total Bilirubin 0.6 Direct Bilirubin 0.4 GGT 475 H AST 61 H ALT 54 H Alkaline Phosphatase 483 H Troponin I High Sens B-Natriuretic Peptide Total Protein 7.1 Albumin 3.2 L TSH 1.31 Urine Color Urine Appearance Urine pH Ur Specific Morral Urine Protein Urine Glucose (UA) Urine Ketones Urine Blood Urine Nitrite Ur Leukocyte Esterase Urine RBC Urine WBC Ur Squamous Epith Cells Amorphous Sediment Urine Bacteria Hyaline Casts Salicylates Urine Opiates Screen Ur Barbiturates Screen Ur Phencyclidine Scrn Ur Amphetamines Screen U Benzodiazepines Scrn Urine Cocaine Screen U Marijuana (THC) Screen Ethyl Alcohol COVID-19 (POLI) Negative COVID-19 Clin Com See Note 06/14/20 06/14/20 06/14/20 18:06 18:15 19:05 WBC 24.9 H RBC 2.95 L D Hgb 9.0 L D Hct 27.6 L D MCV 93.6 MCH 30.5 MCHC 32.6 RDW 13.7 Plt Count 308 D MPV 8.4 L Immature Gran % (Auto) Neut % (Auto) Lymph % (Auto) Trimble % (Auto) Eos % (Auto) Baso % (Auto) Lymph # (Auto) Trimble # (Auto) Eos # (Auto) Baso # (Auto) Abs Immat Gran (auto) Absolute Neuts (auto) Absolute Nucleated RBC 0.000 Nucleated RBC % (auto) 0.0 Smear Tech's Comments PT INR APTT Sodium Potassium Chloride Carbon Dioxide Anion Gap BUN Creatinine Estim Creat Clear Calc Estimated GFR Random Glucose Lactic Acid Calcium Magnesium Total Bilirubin Direct Bilirubin GGT AST ALT Alkaline Phosphatase Troponin I High Sens 2006.9 H B-Natriuretic Peptide Total Protein Albumin TSH Urine Color Urine Appearance Urine pH Ur Specific Morral Urine Protein Urine Glucose (UA) Urine Ketones Urine Blood Urine Nitrite Ur Leukocyte Esterase Urine RBC Urine WBC Ur Squamous Epith Cells Amorphous Sediment Urine Bacteria Hyaline Casts Salicylates Urine Opiates Screen Ur Barbiturates Screen Ur Phencyclidine Scrn Ur Amphetamines Screen U Benzodiazepines Scrn Urine Cocaine Screen U Marijuana (THC) Screen Ethyl Alcohol < 10 COVID-19 (POLI) COVID-19 [employer] 06/14/20 06/14/20 06/14/20 19:06 19:06 19:06 WBC RBC Hgb Hct MCV MCH MCHC RDW Plt Count MPV Immature Gran % (Auto) Neut % (Auto) Lymph % (Auto) Trimble % (Auto) Eos % (Auto) Baso % (Auto) Lymph # (Auto) Trimble # (Auto) Eos # (Auto) Baso # (Auto) Abs Immat Gran (auto) Absolute Neuts (auto) Absolute Nucleated RBC Nucleated RBC % (auto) Smear Tech's Comments PT INR APTT Sodium 133 L Potassium 4.4 Chloride 105 Carbon Dioxide 14 L Anion Gap 18 BUN 27 H Creatinine 0.95 Estim Creat Clear Calc 60.6 Estimated GFR 58 Random Glucose 113 Lactic Acid 1.3 Calcium 7.2 L D Magnesium Total Bilirubin Direct Bilirubin GGT AST ALT Alkaline Phosphatase Troponin I High Sens B-Natriuretic Peptide Total Protein Albumin TSH Urine Color Urine Appearance Urine pH Ur Specific Morral Urine Protein Urine Glucose (UA) Urine Ketones Urine Blood Urine Nitrite Ur Leukocyte Esterase Urine RBC Urine WBC Ur Squamous Epith Cells Amorphous Sediment Urine Bacteria Hyaline Casts Salicylates < 5.0 L Urine Opiates Screen Ur Barbiturates Screen Ur Phencyclidine Scrn Ur Amphetamines Screen U Benzodiazepines Scrn Urine Cocaine Screen U Marijuana (THC) Screen Ethyl Alcohol COVID-19 (POLI) COVID-19 [employer] 06/14/20 06/14/20 06/15/20 19:36 19:36 04:42 WBC RBC Hgb Hct MCV MCH MCHC RDW Plt Count MPV Immature Gran % (Auto) Neut % (Auto) Lymph % (Auto) Trimble % (Auto) Eos % (Auto) Baso % (Auto) Lymph # (Auto) Trimble # (Auto) Eos # (Auto) Baso # (Auto) Abs Immat Gran (auto) Absolute Neuts (auto) Absolute Nucleated RBC Nucleated RBC % (auto) Smear Tech's Comments PT INR APTT Sodium Potassium Chloride Carbon Dioxide Anion Gap BUN Creatinine Estim Creat Clear Calc Estimated GFR Random Glucose Lactic Acid Calcium Magnesium Total Bilirubin Direct Bilirubin GGT AST ALT Alkaline Phosphatase Troponin I High Sens B-Natriuretic Peptide Total Protein Albumin TSH Cancelled Urine Color DARK YELLOW Urine Appearance CLEAR Urine pH 5.5 Ur Specific Morral 1.025 Urine Protein 1+ H Urine Glucose (UA) NEG Urine Ketones 15 Urine Blood 2+ H Urine Nitrite NEG Ur Leukocyte Esterase NEG Urine RBC 5-9 H Urine WBC 1-4 Ur Squamous Epith Cells 1+ Amorphous Sediment TRACE Urine Bacteria NONE Hyaline Casts 0-2 Salicylates Urine Opiates Screen Not Detected Ur Barbiturates Screen Not Detected Ur Phencyclidine Scrn Not Detected Ur Amphetamines Screen Not Detected U Benzodiazepines Scrn Not Detected Urine Cocaine Screen Not Detected U Marijuana (THC) Screen Not Detected Ethyl Alcohol COVID-19 (POLI) COVID-19 Clin Com 06/15/20 06/15/20 04:42 04:42 WBC 24.5 H RBC 2.85 L Hgb 8.8 L Hct 26.5 L MCV 93.0 MCH 30.9 MCHC 33.2 RDW 13.8 Plt Count 367 MPV 8.6 L Immature Gran % (Auto) 2.3 H Neut % (Auto) 88.6 H Lymph % (Auto) 3.9 L Trimble % (Auto) 5.1 Eos % (Auto) 0.0 Baso % (Auto) 0.1 Lymph # (Auto) 1.0 L Trimble # (Auto) 1.3 H Eos # (Auto) 0.0 Baso # (Auto) 0.0 Abs Immat Gran (auto) 0.57 H Absolute Neuts (auto) 21.7 H Absolute Nucleated RBC 0.000 Nucleated RBC % (auto) 0.0 Smear Tech's Comments VERIFIED PT INR APTT Sodium 132 L Potassium 4.5 Chloride 105 Carbon Dioxide 13 L Anion Gap 19 BUN 25 H Creatinine 0.85 Estim Creat Clear Calc 60.9 Estimated GFR > 60 Random Glucose 117 H Lactic Acid Calcium 7.3 L Magnesium Total Bilirubin 0.6 Direct Bilirubin 0.4 GGT AST 140 H ALT 117 H Alkaline Phosphatase 725 H D Troponin I High Sens B-Natriuretic Peptide Total Protein 5.5 L D Albumin 2.5 L D TSH 0.68 Urine Color Urine Appearance Urine pH Ur Specific Morral Urine Protein Urine Glucose (UA) Urine Ketones Urine Blood Urine Nitrite Ur Leukocyte Esterase Urine RBC Urine WBC Ur Squamous Epith Cells Amorphous Sediment Urine Bacteria Hyaline Casts Salicylates Urine Opiates Screen Ur Barbiturates Screen Ur Phencyclidine Scrn Ur Amphetamines Screen U Benzodiazepines Scrn Urine Cocaine Screen U Marijuana (THC) Screen Ethyl Alcohol COVID-19 (POLI) COVID-19 Clin Com EKG Interpretation EKG Comments: EKG shows atrial fibrillation with rapid rate at 147/Min. Nonspecific ST-T changes. Assessment and Plan (1) Atrial fibrillation with rapid ventricular response: Status: Acute Atrial fibrillation with rapid rate of unknown duration. Most likely in the setting of systemic infection of uncertain etiology. Possible viral versus others. Microbiology shows Gram-positive cocci in chains as preliminary report. Identification is still pending. From the cardiac standpoint, continue IV Cardizem drip. Add digoxin as well as beta-blockers for additional rate control. Anticoagulation if no contraindications. She may need RENAE/cardioversion. Would like the infection issues to be at least partially treated and she not be septic before any anesthesia. Discussed with hospitalist, . Procedures Abscess I/D Date of Service: 06/15/20
--- NOTE | 2020-06-15 10:30 | CA_ITS ---
Transthoracic Echocardiogram Patient (Last, First, Middle): Julieta Barbour K Gender: Female Date of : 1950 Age: 69 Procedure Date: 06/15/2020 Procedure Type: Transthoracic Echocardiogram [place] [facility] [place]: 170.18 cm Weight: 67.44 kg BSA: 1.78 m2 Heart Rate: bpm BP: 126 / 66 mmHg Lip Reading Teacher: Referring MD: Karen LITTLE Symptoms: afib rvr Study Quality: Fair ECG Rhythm: Atrial Fibrillation Conclusions: - The left ventricular systolic function is normal. The visually estimated ejection fraction is between 55-60%. - There is severe aortic valve stenosis. The peak aortic velocity is 5.64 m/s with a calculated peak gradient of 127 mmHg. The mean gradient is 81 mmHg. The aortic valve area is 0.62 cm2. There is mild aortic valve regurgitation. - There is moderate mitral annular calcification. - There is mild to moderate tricuspid valve regurgitation. - Mild pulmonary hypertension is present. - There is mild dilatation of the ascending aorta measuring 3.60 cm. Findings Left Ventricle Normal left ventricular cavity size. There is severely increased left ventricular wall thickness. The left ventricular systolic function is normal. The visually estimated ejection fraction is between 55-60%. There is no evidence of regional wall motion abnormalities. Diastolic function is indeterminate on the basis of available data. E/E prime ratio is >15, consistent with elevated filling pressures. Right Ventricle Mildly increased right ventricular cavity size. There is normal right ventricular systolic function. Atria The left atrium is severely dilated. The right atrium is mildly dilated. Aortic Valve There is severe calcification of the aortic valve. There is severe aortic valve stenosis. The peak aortic velocity is 5.64 m/s with a calculated peak gradient of 127 mmHg. The mean gradient is 81 mmHg. The aortic valve area is 0.62 cm2. There is mild aortic valve regurgitation. Mitral Valve There is moderate mitral annular calcification. There is mild mitral valve regurgitation. There is no mitral valve stenosis. Pulmonic Valve The pulmonic valve was not well visualized. Tricuspid Valve Normal tricuspid valve structure. There is mild to moderate tricuspid valve regurgitation. Mild pulmonary hypertension is present. Great Vessels There is mild dilatation of the ascending aorta measuring 3.60 cm. Venous The inferior vena cava is normal in size and collapses less than 50% with inspiration. Pericardium/Pleural There is no evidence of pericardial effusion. Prior Study Comparison No prior study available for comparison. Measurements 2D Linear Measurements IVSd: 1.74 0.6-0.9/0.6-1.0 cm LVIDd: 3.86 3.9-5.3/4.2-5.9 cm LVIDd Index: 2.17 2.4-3.2/2.2-3.1 cm/m2 LVIDs: 3.04 2.0-3.6 cm LVPWd: 1.50 0.7-1.1 cm Ao Root: 3.30 2.1-3.5 cm LA Diam: 3.80 2.7-3.8/3.0-4.0 cm LAIDs Index: 2.13 1.5-2.3 cm/m2 LV Mass: 312.41 67-162/88-224 g LV Mass Index: 175.51 43-95/49-115 g/m2 LVOT Diam: 2.00 3.0+(-)1.3 cm Mitral Valve MV VTI: 0.37 MV Pk Taran: 1.58 MV Mn Taran: 0.76 MV Pk Grad: 10.00 MV Mn Grad: 3.00 MV Pk E: 1.37 MV Decel Time: 156.00 E'Lateral: 9.67 E'Medial: 7.35 E/E' Med: 18.60 E/E' Lat: 14.20 PHT: 46.00 MVA PHT: 4.78 MVA Continuity: 1.91 Decel [place]: 8.78 Aortic Valve AoV Pk Taran: 5.64 AoV Mn Taran: 4.22 AoV VTI: 1.14 AoV Pk Grad: 127.00 Aov Mn Grad: 81.00 SOC[place]RO Cont.VTI: 0.62 LVOT LVOT Pk Taran: 1.16 LVOT Mn Taran: 0.80 LVOT VTI: 0.23 LVOT Pk Grad: 5.00 LVOT Mn Grad: 3.00 LVOT Diam: 2.00 LVOT Area: 3.14 Diastolic Function MV Pk E: 1.37 E'Medial: 7.35 E/E' Med: 18.60 E' Laterial: 9.67 E/E' Lat: 14.20 Tricuspid Valve TR Pk Taran: 2.90 TR Pk Grad: 34.00 RVSP: 42.00 Great Vessels Aorta Ao Root-2D: 3.30 2.0-3.7 cm Ao Asc: 3.60 2.1-3.4 cm Pulmonary Valve PV Pk Taran: 1.29 Peak PV Grad: 7.00 Updated in Other Vendor System with Status of Final Porfirio Barrios MD electronically signed on 06/15/2020 2:58:51 PM with status of Final
[2020-06-15 10:49] LABS: PTT Heparin Drip 34.4 SEC (53-77.9)
[2020-06-15] MEDS: iohexoL 350 MG/ML 100 ML INFUS..BTL IV (14:36)
--- NOTE | 2020-06-15 15:21 | PM.EVENT ---
Event Note Date of Service: 06/14/20 Event Note: Patient seen examined with APC Karen LITTLE briefly this is a 69-year-old female patient was not seen a physician in last 10 years presented to emergency room with generalized weakness and queasy feeling, has chronic back pain without any recent worsening she denies any chest pain palpitation abdominal pain nausea vomiting fever chills rigors patient was seen few days ago at the urgent care clinic and was recommended to have blood work done during that visit patient was noted to have a heart rate of 48, on arrival to the emergency room patient was noted to be tachycardic with ventricular rate in 200s initially patient treated with adenosine when the rhythm slow down patient was noted to be in atrial fibrillation therefore treated with IV Cardizem 20 mg to boluses followed by IV Cardizem drip patient heart rate remains in 140-160 range therefore patient treated with digoxin and metoprolol, subsequently patient laboratory data was obtained that showed a WBC count of 29,000, hematocrit 34.6 creatinine 1.4 and anion gap of 26 with a bicarb of 13 patient alk-phos is elevated at 483, troponin of 2062 and BNP 1 239 chest x-ray showed no pulmonary venous congestion. Assessment and plan SIRS with high suspicion for sepsis, patient treated with IV Zosyn and IV vancomycin, 2 set of blood cultures obtained, urinalysis and chest x-ray are unremarkable, skin with no evidence of rashes,no cellulitis, no source of infection normal lactic acid, will obtain echocardiogram and abdominal CT scan. obtain ID consult New onset atrial fibrillation continue IV Cardizem drip, patient treated with digoxin and beta-mady, case discussed with Dr. Guadalupe if patient becomes hemodynamically unstable patient will require Cardioversion. Elevated troponin likely due to tachycardia patient with no chest pain on no shortness of breath follow echo agree with treatment plan as per APC since patient remained hemodynamically stable is being admitted to [facility] with low threshold for transferred to ICU, Dr. Holder aware of plan.
--- NOTE | 2020-06-15 15:34 | P.PNIM_ITS ---
Subjective Subjective Date of Service: 06/15/20 Interval History: patient generally not feeling well but continue to denies any chest pain, denies any abdominal pain, although mentioned that she was rubbing her right upper abdominal quadrant and it was sore, tele monitor showing improvement in ventricular rate around 100 now. Review of Systems General no headache, no dizziness, no fever. CVS no chest pain, no palpitation. Respiratory no cough, no shortness of breath Gastrointestinal no nausea, no vomiting, no abdominal pain Physical Exam Vital Signs: Vital Signs: Last Vital Signs Temp 97.6 F 06/15/20 12:00 Pulse 114 H 06/15/20 13:33 Resp 20 06/15/20 12:00 BP 96/55 L 06/15/20 13:33 Pulse Ox 95 06/15/20 12:00 Body Mass Index 21.0 General patient resting comfortably in no acute distress. Neck is supple no JVD. CVS irregular,+ systolic murmur Respiratory lungs clear to auscultation, no respiratory distress Gastrointestinal abdomen soft, nontender, bowel sounds audible, no guarding , no rigidity. Extremities no clubbing cyanosis or edema. Neuro nonfocal Skin no rash Psych very anxious Objective Data Current Medications Generic Name Dose Route Start Last Admin Trade Name Freq PRN Reason Stop Dose Admin Acetaminophen 650 mg 06/15/20 07:53 06/15/20 09:28 Acetaminophen 325 Mg Tablet PO 650 mg Q6H PRN Administration PAIN Heparin Sodium (Porcine) 4,880 unit 06/15/20 09:38 Heparin Sodium,Porcine 5,000 Unit/Ml Vial 80 unit/kg (4880 unit) IVPUSH BOLUS PRN 80 unit/kg - Heparin Protocol Heparin Sodium (Porcine) 2,440 unit 06/15/20 09:38 Heparin Sodium,Porcine 5,000 Unit/Ml Vial 40 unit/kg (2440 unit) IVPUSH BOLUS PRN HEPARINPRO Diltiazem HCl 125 mg/ Sodium 125 mls @ 0 mls/hr 06/14/20 15:45 06/15/20 14:40 Chloride IVCONT 13 mg/hr .Q0M KENYATTA 13 mls/hr Titration Protocol Per Protocol Piperacillin Sod/Tazobactam 50 mls @ 100 mls/hr 06/15/20 01:00 06/15/20 13:36 Sod 3.375 gm/ Sodium Chloride IV 100 mls/hr Q6H KENYATTA Administration Sodium Chloride 1,000 mls @ 100 mls/hr 06/15/20 08:45 06/15/20 09:25 Ns IVCONT 100 mls/hr .Q10H KENYATTA Administration Vancomycin HCl 750 mg/ Sodium 265 mls @ 265 mls/hr 06/15/20 10:00 06/15/20 11:20 Chloride IV Infused Q12H KENYATTA Infusion Heparin Sodium/Sodium Chloride 25,000 unit in 250 mls @ 0 mls/hr 06/15/20 09:45 06/15/20 10:03 IVCONT 12 units/kg/hr .Q0M KENYATTA 7.32 mls/hr Administration Protocol Per Protocol Metoprolol Tartrate 50 mg 06/15/20 09:00 06/15/20 13:33 Metoprolol Tartrate 50 Mg Tablet PO 50 mg QID KENYATTA Administration Protocol Ondansetron HCl 4 mg 06/15/20 07:53 Ondansetron Hcl 4 Mg/2 Ml Vial IVPUSH Q8H PRN Nausea Sodium Chloride 3 ml 06/15/20 00:00 06/15/20 09:02 0.9 % Sodium Chloride Flush 3 Ml Syringe IVFLUSH 3 ml QSHIFT KENYATTA Administration Labs CBC & Chem 7: 06/15/20 04:42 06/15/20 04:42 Microbiology Microbiology Results: Microbiology 06/14/20 19:15 Blood - Venous Blood Culture - Preliminary 06/14/20 19:10 Blood - Venous Blood Culture - Preliminary Assessment and Plan (1) Sepsis: Status: Acute (2) Leukocytosis: Status: Acute (3) Elevated LFTs: Status: Acute (4) High anion gap metabolic acidosis: Status: Acute (5) Renal insufficiency: Status: Acute (6) Atrial fibrillation with rapid ventricular response: Status: Acute (7) Gram-positive bacteremia: Status: Acute (8) Weakness: Status: Acute Assessment and Plan: 69-year-old female with no known past medical history who has not sought medical care in the past 10 years who presents to the emergency department with generalized weakness found to have rapid atrial fibrillation and multiple other lab abnormalities atrial fibrillation with rapid ventricular response. better ventricular rate this morning, patient remained asymptomatic with no chest pain, no palpitation, will continue IV Cardizem drip, case discussed with Dr. Barrios he recommended metoprolol ,digoxin and IV heparin BP remains soft, continue IV fluid and supportive care echo showed severe aortic valve stenosis, preserved EF 55-60, diastolic function is indeterminate. Stable electrolytes and magnesium continue tele monitoring, further treatment plan as per Cardiology Sepsis patient on admission had no source of infection but had high suspicion of sepsis due to leukocytosis, tachypnea and tachycardia, normal lactic acid blood cultures,2/2 growing Gram-positive cocci in chains, CT abdomen showing findings consistent with acute cholecystitis and mild dilatation of common bile duct, echo showed no valvular abnormality, normal chest x-ray and UA ,covid neg will follow final blood culture report, continue IV Vanco and Zosyn day 2, no features of severe sepsis. Anion gap metabolic acidosis lactic acid normal range, etoh level less than 10, aspirin levels normal, normal toxic screen, anion gap closed likely was related to sepsis kidney function stable persistent acidosis will place on bicarb elevated trop,no chest pain,likely demand r/t rapid afib, echo showed no wall motion abnormality, repeat troponin remains unchanged elevated BNP clinically does not appear to be in heart failure, likely due to chronic aortic stenosis and dilated atria renal insufficiency improved, likely due to decreased by mouth intake continue IV fluid due to soft BP elevated lft, worsening LFTs and alk-phos likely due to gall bladder inflammation, as seen on CT abdomen ordered abdominal ultrasound, GI and kelley rgical consult obtained follow LFTs continue NPO and IV fluid etoh use initially reported 2-3 glasses of wine daily, but then said no etoh x 4 weeks.does not appear to be in etoh withdrawal dvt ppx - on IV heparin code status - full code
[2020-06-15 16:40] LABS: INTERNATIONAL NORM RATIO 1.5 (0.9-1.1); Prothrombin Time 18.2 SEC (10.8-13.0)
[2020-06-15 16:42] LABS: PTT Heparin Drip 43.6 SEC (53-77.9)
--- NOTE | 2020-06-15 16:46 | P.CNID_ITS ---
History of Present Illness Data of Consult Service Date: 06/15/20 Requesting physician: Juice Nesbitt Primary Care Provider: None Physician HPI Reason for consult: bacteremia She presents with weakness and abdominal discomfort Abdominal discomfort ws 7/10 epigastric She has no nausea,vomiting or diarrhea or weight loss No one else was ill * She has no fever or chills at this time,notes had one month ago Review of Systems Constitutional: Constitutional: Denies headache(s) ENT: Denies dizziness and Denies headache(s) Cardiovascular: Cardiovascular: Denies syncope Gastrointestinal: Gastrointestinal: Reports abdominal pain Neurologic: Denies dizziness, Denies syncope and Denies headache(s) [facility] Past Medical History Medical History No known health problems Functional capacity: independent ambulation Surgical History Surgical History No history of previous surgery Social History Social History Household Members: Spouse Housing: House Do you presently have visiting nurse or other home services: No Alcohol intake: current Alcohol intake frequency: 3 or more drinks per day Alcohol type: wine Smoking Status: Never smoker Use of substances other than those prescribed or required for medical reasons: No Have you been hit, kicked, punched, or otherwise hurt by someone within the past year? If so, by whom?: No Do you feel safe in your current relationship?: Yes Is there a partner from a previous relationship who is making you feel unsafe now?: No Are you made to feel afraid or neglected: No Advance Directives: No Advance Directives Information Provided: No Do you have thoughts of harming others: None Do you have a plan to hurt others: No Plan Recently lost weight without trying: No service: No Current occupational status: retired Meds Allergies Allergy/AdvReac Type Severity Reaction Status Date / Time No Known Allergies Allergy Verified 06/14/20 15:18 Physical Exam Vital Signs: Vital Signs: Last Vital Signs Temp 97.5 F 06/15/20 15:33 Pulse 105 H 06/15/20 15:33 Resp 22 H 06/15/20 15:33 BP 104/66 06/15/20 15:33 Pulse Ox 95 06/15/20 15:33 Body Mass Index 21.0 Const: General: cooperative Orientation/consciousness: oriented to person, oriented to place and oriented to time HENMT: Ears: hearing grossly normal bilaterally General nose exam: Normal nares present Mouth: Normal oral and palatal mucosa present Eyes: General: appearance normal, both eyes and all related structures Resp: Effort & Inspection: normal respiratory effort Cardio: Rate: regular rate Rhythm: regular rhythm GI: Inspection: Yes normal to inspection Palpation (GI): Soft to palpation and nontender Auscultation: normal bowel sounds : General: Yes no CVA tenderness Back/Spine/Pelvis: Back: no CVA tenderness Cervical Spine: normal cervical lordosis Thoracic/Lumbar Spine: thoracic and lumbar spine normal to inspection Skin: General skin exam: no rashes or lesions noted Neuro: General: oriented to person, oriented to place and oriented to time Extrem: General: Yes normal to inspection Assessment and Plan (1) Gram-positive bacteremia: Problem details: There is concern over abdominal process such as biliary ductal obstruction Less likely renal obstruction Concern over endocarditis Status: Acute Continue Zosyn and Vancomycin Check abdominal CT Check echo Consider Surgery input (2) Sepsis: Status: Acute Results Labs CBC & Chem 7: 06/15/20 04:42 06/15/20 04:42 Labs: Short CBC 06/14/20 06/15/20 Range/Units 18:06 04:42 WBC 24.9 H 24.5 H (4.8-10.8) X10*3/uL Hgb 9.0 L D 8.8 L (12.0-16.0) g/dl Hct 27.6 L D 26.5 L (37-47) % Plt Count 308 D 367 (160-400) X10*3/uL BMP 06/14/20 06/15/20 19:06 04:42 Sodium 133 L 132 L Potassium 4.4 4.5 Chloride 105 105 Carbon Dioxide 14 L 13 L BUN 27 H 25 H Creatinine 0.95 0.85 Calcium 7.2 L D 7.3 L Liver Function 06/14/20 06/15/20 Range/Units 15:21 04:42 Total Bilirubin 0.6 (0.0-1.0) mg/dL Direct Bilirubin 0.4 (0.0-0.5) mg/dL GGT 475 H (7-33) U/L AST 140 H (5-31) U/L ALT 117 H (0-31) U/L Alkaline Phosphatase 725 H D (39-117) U/L Albumin 2.5 L D (3.5-5.0) g/dL Urine 06/14/20 Range/Units 19:36 Urine Color DARK YELLOW Urine Appearance CLEAR Urine pH 5.5 (5.0-8.0) Ur Specific [place] 1.025 (1.005-1.025) Urine Protein 1+ H (NEG-TRACE) MG/DL Urine Glucose (UA) NEG (NEG) MG/DL Microbiology Microbiology Results: Microbiology 06/14/20 19:15 Blood - Venous Blood Culture - Preliminary 06/14/20 19:10 Blood - Venous Blood Culture - Preliminary
[2020-06-15] MEDS: Heparin Sodium,Porcine 5,000 UNIT/ML VIAL 2440 UNIT IVPUSH (17:51)
[2020-06-15 18:08] LABS: Glucose, Whole Blood 118 mg/dL (60-115)
[2020-06-15] MEDS: Morphine Sulfate 2 MG/ML CARTRIDGE 1 MG IVPUSH (18:54)
[2020-06-15] MEDS: LORazepam 2 MG/ML VIAL 0.5 MG IVPUSH (18:54)
[2020-06-15] MEDS: dilTIAZem HCL 125 MG in 0.9 % Sodium Chloride 100 ML IVCONT (20:01)
[2020-06-15] MEDS: vancomycin HCL 750 MG in 0.9 % Sodium Chloride 250 ML 125 MG IV (21:34)
[2020-06-15] MEDS: Sodium Bicarbonate 650 MG TABLET PO (21:34)
--- NOTE | 2020-06-15 22:20 | PC.NURSE ---
Pt has fine crackles in bilateral bases and also mild wheezing on inspiration. Messaged MD for order to stop fuid, states pause fluids. Will reassess as needed.
[2020-06-15 23:47] LABS: PTT Heparin Drip 55.2 SEC (53-77.9)
[2020-06-16] MEDS: Piperacillin Sodium/Tazobactam 3.375 GM in 0.9 % Sodium Chloride 50 ML IV ×3 (01:51→13:53)
[2020-06-16] MEDS: Heparin Sodium,Porcine 5,000 UNIT/ML VIAL 2440 UNIT IVPUSH (01:58)
[2020-06-16] MEDS: Acetaminophen 325 MG TABLET 650 MG PO (02:17)
[2020-06-16 03:51] VITALS: BP 138/72; RESP 18; TEMP 37; O2SAT 98
[2020-06-16 06:38] LABS: MANUAL DIFF FLAG NO
[2020-06-16 06:50] LABS: INTERNATIONAL NORM RATIO 1.5 (0.9-1.1); Prothrombin Time 17.8 SEC (10.8-13.0)
[2020-06-16 07:01] LABS: Basophils Percent Auto 0.1 % (0-2); Eosinophils Percent Auto 0.1 % (0-4); Hematocrit 25.3 % (37-47); Hemoglobin 8.2 g/dl (12.0-16.0); Imm Gran Abs Auto 0.43 X10*3/uL (0.00-0.03); Imm Gran Pct Auto 2.4 % (0.0-0.4); Lymphocytes Absolute Auto 1.5 X10*3/uL (1.2-4.9); Lymphocytes Percent Auto 8.2 % (20-40); Mean Corpuscular HGB Conc 32.4 g/dl (31.0-35.0); Mean Corpuscular Hemoglobin 30.1 pg (27.0-33.0); Mean Platelet Volume 8.9 fL (9.4-12.3); Monocytes Absolute Auto 0.7 X10*3/uL (0.1-1.2); Neutrophils Absolute Auto 15.4 X10*3/uL (2.0-8.3); Neutrophils Percent Auto 85.2 % (45-73); Platelet Count 312 X10*3/uL (160-400); Red Blood Count 2.72 X10*6/uL (4.20-5.50)
[2020-06-16 07:13] LABS: Troponin-I High Sensitivity 937.1 ng/L (<3.5-17.0)
[2020-06-16 07:33] LABS: Albumin Level 2.4 g/dL (3.5-5.0); Anion Gap 16 (12-20); Bilirubin Direct 1.1 mg/dL (0.0-0.5); Bilirubin Total 1.4 mg/dL (0.0-1.0); Blood Urea Nitrogen 27 mg/dL (9-16); Calcium 7.5 mg/dL (8.4-10.2); Carbon Dioxide 14 mmol/L (22-29); Chloride 107 mmol/L (96-108); Creatinine Clr Calc Pharmacy 61.7; Estimated Glomerular Filt Rate > 60; Glucose Random 101 mg/dL (60-115); Potassium 4.2 mmol/l (3.3-5.1); Sodium 133 mmol/L (135-145); Total Protein 5.3 g/dL (6.5-8.0)
[2020-06-16 07:52] LABS: Alanine Aminotransferase 861 U/L (0-31); Alkaline Phosphatase 1358 U/L (39-117); Aspartate Amino Transferase 1561 U/L (5-31)
[2020-06-16 08:00] VITALS: BP 118/72; PULSE 115; RESP 20; TEMP 36.5; O2SAT 93
[2020-06-16 08:06] VITALS: BP 138/72; PULSE 126
[2020-06-16] MEDS: Metoprolol Tartrate 50 MG TABLET PO ×2 (08:06→13:54)
[2020-06-16] MEDS: Sodium Bicarbonate 650 MG TABLET PO (08:06)
[2020-06-16] MEDS: 0.9 % Sodium Chloride Flush 3 ML SYRINGE IVFLUSH (08:08)
[2020-06-16 08:36] LABS: PTT Heparin Drip 59.2 SEC (53-77.9)
--- NOTE | 2020-06-16 08:48 | PM.GICN ---
History of Present Illness Data of Consult Service Date: 06/16/20 Requesting physician: Nicole Tate Primary Care Provider: None Physician HPI Reason for consult: cholecystitis 69-year-old female who Ia ma sked to see for assessment for abn LFt and concern for cholecystitis. She presented with wekaness and malaise, with reduced PO intake. has not seen a physician in the past 10 years who presents to the emergency department with generalized weakness. She has been feeling queasy with generalized malaise. She has had decreased p.o. intake but has been able to tolerate fluid. She denies any chest pain, palpitations, dizziness, abdominal pain, diarrhea, fever, chills. she traveled to the [facility] almost 1 month ago otherwise no recent travel. She denies any recent sick contacts. She does report some low back pain. Denies any urinary sympoms. She was seen 06/10 in the outpatient clinic for the same. At that time her heart rate was noted to be in the 48. Today on arrival she was noted to be significantly tachycardic with a heart rate over 200. She received 2 doses of adenosine and atrial fibrillation with rapid ventricular response was revealed. she was given bolus doses of IV Cardizem and then started on Cardizem drip. She was then given a dose of oral metoprolol as well as digoxin. Her heart rate remained fluctuating between the 140s and 170s. Her lab work also revealed leukocytosis of 29,000, H/ H of 11.3/34.6, creatinine 1.42 with an anion gap of 26 and bicarb of 13. LFTs were mildly elevated and alk-phos was 483. Troponin was to 2062.7 and BNP 1239. chest x-ray was unremarkable. patient's blood pressure has remained soft in the 90s Review of Systems Constitutional: Constitutional: Denies headache(s) ENT: Denies dizziness and Denies headache(s) Cardiovascular: Cardiovascular: Denies syncope Neurologic: Denies dizziness, Denies syncope and Denies headache(s) [facility] Past Medical History Medical History No known health problems Functional capacity: independent ambulation Surgical History Surgical History No history of previous surgery Social History Social History Household Members: Spouse Housing: House Do you presently have visiting nurse or other home services: No Alcohol intake: current Alcohol intake frequency: 3 or more drinks per day Alcohol type: wine Smoking Status: Never smoker Use of substances other than those prescribed or required for medical reasons: No Currently Displaying Signs/Symptoms of Drug Intoxication Withdrawal: No Have you been hit, kicked, punched, or otherwise hurt by someone within the past year? If so, by whom?: No Do you feel safe in your current relationship?: Yes Is there a partner from a previous relationship who is making you feel unsafe now?: No Are you made to feel afraid or neglected: No Advance Directives: No Advance Directives Information Provided: No Do you have thoughts of harming others: None Do you have a plan to hurt others: No Plan Recently lost weight without trying: No service: No Current occupational status: retired Meds Allergies Allergy/AdvReac Type Severity Reaction Status Date / Time No Known Allergies Allergy Verified 06/14/20 15:18 Physical Exam Vital Signs: Vital Signs: Last Vital Signs Temp 97.7 F 06/16/20 08:00 Pulse 126 H 06/16/20 08:06 Resp 20 06/16/20 08:00 BP 138/72 06/16/20 08:06 Pulse Ox 93 06/16/20 08:00 Body Mass Index 21.0 Results Labs CBC & Chem 7: 06/16/20 05:51 06/16/20 05:51 Labs: Short CBC 06/16/20 06/16/20 Range/Units 05:51 05:51 WBC 18.0 H Cancelled (4.8-10.8) X10*3/uL Hgb 8.2 L Cancelled (12.0-16.0) g/dl Hct 25.3 L Cancelled (37-47) % Plt Count 312 Cancelled (160-400) X10*3/uL BMP 06/16/20 05:51 Sodium 133 L Potassium 4.2 Chloride 107 Carbon Dioxide 14 L BUN 27 H Creatinine 0.84 Calcium 7.5 L Liver Function 06/16/20 Range/Units 05:51 Total Bilirubin 1.4 H (0.0-1.0) mg/dL Direct Bilirubin 1.1 H (0.0-0.5) mg/dL AST 1561 H (5-31) U/L ALT 861 H (0-31) U/L Alkaline Phosphatase 1358 H D (39-117) U/L Albumin 2.4 L (3.5-5.0) g/dL Microbiology Microbiology Results: Microbiology 06/14/20 19:15 Blood - Venous Blood Culture - Preliminary 06/14/20 19:10 Blood - Venous Blood Culture - Preliminary
[2020-06-16 09:17] LABS: Vancomycin Trough 13.2 mcg/mL (10.0-20.0)
--- NOTE | 2020-06-16 10:13 | PM.CNGS ---
History of Present Illness Consult details Narrative: 69F admitted last Jun 14, 2020 for body malaise. She had complained of being queasy and very weak for an unspecified period of time. Her H and P on admission states that she did not c/o abdominal pain at that time. However,she apparently c/o of abdominal pain on the right starting yesterday. She had appeared septic as well with significant tachycardia requiring Cardizem drip. She was therefore sent for imaging studies last night, and her US and CT scan showed a distended galbladder with thickened wall and stranding around this c/w acute cholecystitis. She has remained tachycardic overnight. She describes being short of breath but denies chest pain. She apparently has had not been seeing any PCP for many years either. Review of Systems Constitutional: Constitutional: Denies headache(s) ENT: Denies dizziness and Denies headache(s) Cardiovascular: Cardiovascular: Denies syncope Neurologic: Denies dizziness, Denies syncope and Denies headache(s) [facility] Past Medical History Medical History (Updated 06/16/20 @ 10:22 by Jon Singletary MD) Acute cholecystitis No known health problems Functional capacity: independent ambulation Surgical History Surgical History No history of previous surgery Social History Social History Household Members: Spouse Housing: House Alcohol intake: current Alcohol intake frequency: 3 or more drinks per day Alcohol type: wine Smoking Status: Never smoker service: No Current occupational status: retired Meds Allergies Allergy/AdvReac Type Severity Reaction Status Date / Time No Known Allergies Allergy Verified 06/14/20 15:18 Physical Exam Vital Signs: Vital Signs: Last Vital Signs Temp 97.7 F 06/16/20 08:00 Pulse 126 H 06/16/20 08:06 Resp 20 06/16/20 08:00 BP 138/72 06/16/20 08:06 Pulse Ox 93 06/16/20 08:00 Body Mass Index 21.0 Const: Other: appears short of breath, very anxious Orientation/consciousness: patient oriented x3 Resp: Other: some SOB Cardio: Rate: tachycardic GI: Other: soft but tender on the right side of the abdomen Neuro: General: patient oriented x3 Results Labs Result diagrams: 06/16/20 05:51 06/16/20 05:51 Labs: Abnormal lab results 06/15/20 06/15/20 06/15/20 Range/Units 10:11 16:03 16:03 WBC (4.8-10.8) X10*3/uL RBC (4.20-5.50) X10*6/uL Hgb (12.0-16.0) g/dl Hct (37-47) % MPV (9.4-12.3) fL Immature Gran % (Auto) (0.0-0.4) % Neut % (Auto) (45-73) % Lymph % (Auto) (20-40) % Abs Immat Gran (auto) (0.00-0.03) X10*3/uL Absolute Neuts (auto) (2.0-8.3) X10*3/uL PT 18.2 H (10.8-13.0) SEC INR 1.5 H (0.9-1.1) PTT (Heparin Protocol) 34.4 L 43.6 L D (53-77.9) SEC Sodium (135-145) mmol/L Carbon Dioxide (22-29) mmol/L BUN (9-16) mg/dL POC Glucose (60-115) mg/dL Calcium (8.4-10.2) mg/dL Total Bilirubin (0.0-1.0) mg/dL Direct Bilirubin (0.0-0.5) mg/dL AST (5-31) U/L ALT (0-31) U/L Alkaline Phosphatase (39-117) U/L Troponin I High Sens (<3.5-17.0) ng/L Total Protein (6.5-8.0) g/dL Albumin (3.5-5.0) g/dL 06/15/20 06/16/20 06/16/20 Range/Units 18:00 00:12 05:51 WBC 18.0 H (4.8-10.8) X10*3/uL RBC 2.72 L (4.20-5.50) X10*6/uL Hgb 8.2 L (12.0-16.0) g/dl Hct 25.3 L (37-47) % MPV 8.9 L (9.4-12.3) fL Immature Gran % (Auto) 2.4 H (0.0-0.4) % Neut % (Auto) 85.2 H (45-73) % Lymph % (Auto) 8.2 L (20-40) % Abs Immat Gran (auto) 0.43 H (0.00-0.03) X10*3/uL Absolute Neuts (auto) 15.4 H (2.0-8.3) X10*3/uL PT (10.8-13.0) SEC INR (0.9-1.1) PTT (Heparin Protocol) 49.0 L (53-77.9) SEC Sodium (135-145) mmol/L Carbon Dioxide (22-29) mmol/L BUN (9-16) mg/dL POC Glucose 118 H (60-115) mg/dL Calcium (8.4-10.2) mg/dL Total Bilirubin (0.0-1.0) mg/dL Direct Bilirubin (0.0-0.5) mg/dL AST (5-31) U/L ALT (0-31) U/L Alkaline Phosphatase (39-117) U/L Troponin I High Sens (<3.5-17.0) ng/L Total Protein (6.5-8.0) g/dL Albumin (3.5-5.0) g/dL 06/16/20 06/16/20 06/16/20 Range/Units 05:51 05:51 05:51 WBC (4.8-10.8) X10*3/uL RBC (4.20-5.50) X10*6/uL Hgb (12.0-16.0) g/dl Hct (37-47) % MPV (9.4-12.3) fL Immature Gran % (Auto) (0.0-0.4) % Neut % (Auto) (45-73) % Lymph % (Auto) (20-40) % Abs Immat Gran (auto) (0.00-0.03) X10*3/uL Absolute Neuts (auto) (2.0-8.3) X10*3/uL PT 17.8 H (10.8-13.0) SEC INR 1.5 H (0.9-1.1) PTT (Heparin Protocol) (53-77.9) SEC Sodium 133 L (135-145) mmol/L Carbon Dioxide 14 L (22-29) mmol/L BUN 27 H (9-16) mg/dL POC Glucose (60-115) mg/dL Calcium 7.5 L (8.4-10.2) mg/dL Total Bilirubin 1.4 H (0.0-1.0) mg/dL Direct Bilirubin 1.1 H (0.0-0.5) mg/dL AST 1561 H (5-31) U/L ALT 861 H (0-31) U/L Alkaline Phosphatase 1358 H D (39-117) U/L Troponin I High Sens 937.1 H D (<3.5-17.0) ng/L Total Protein 5.3 L (6.5-8.0) g/dL Albumin 2.4 L (3.5-5.0) g/dL Short CBC 06/16/20 06/16/20 Range/Units 05:51 05:51 WBC 18.0 H Cancelled (4.8-10.8) X10*3/uL Hgb 8.2 L Cancelled (12.0-16.0) g/dl Hct 25.3 L Cancelled (37-47) % Plt Count 312 Cancelled (160-400) X10*3/uL BMP 06/16/20 05:51 Sodium 133 L Potassium 4.2 Chloride 107 Carbon Dioxide 14 L BUN 27 H Creatinine 0.84 Calcium 7.5 L Liver Function 06/16/20 Range/Units 05:51 Total Bilirubin 1.4 H (0.0-1.0) mg/dL Direct Bilirubin 1.1 H (0.0-0.5) mg/dL AST 1561 H (5-31) U/L ALT 861 H (0-31) U/L Alkaline Phosphatase 1358 H D (39-117) U/L Albumin 2.4 L (3.5-5.0) g/dL Urine 06/14/20 Range/Units 19:36 Urine Color DARK YELLOW Urine Appearance CLEAR Urine pH 5.5 (5.0-8.0) Ur Specific [place] 1.025 (1.005-1.025) Urine Protein 1+ H (NEG-TRACE) MG/DL Urine Glucose (UA) NEG (NEG) MG/DL All other labs normal. Assessment and Plan (1) Acute cholecystitis: Status: Acute Her imaging studies are c/w acute cholecysitits. I have reviewed this with Dr. Garcia of radiology. The patient however has markedly elevated BNP and troponin levels suggestive of an ongoing cardiac event. She is therefore not an appropriate candidate for cholecystectomy at this time. She has markedly elevated LFTs. In view of her sepsis and ongoing tachycardia, she will benefit from an urgent tube cholecystostomy via IR as a much less invasive intervention. She is currently on IV Zosyn. I have discussed the above with the hospitalist. I have discussed this with IR as well - Dr. Garcia. Procedures Abscess I/D Date of Service: 06/16/20
--- NOTE | 2020-06-16 10:15 | P.PNCA_ITS ---
Subjective Subjective Interval history: She is very emotional and tearful. However, no specific cardiac symptoms. Still somewhat weak and lethargic. Review of Systems Review of Systems Cardiovascular-negative for angina, shortness of breath, palpitations dizzy spells or syncopal episodes. Constitutional- positive for fatigue and malaise. Remainder of the 10 system review negative. Physical Exam Vital Signs: Last Vital Signs Temp 97.7 F 06/16/20 08:00 Pulse 126 H 06/16/20 08:06 Resp 20 06/16/20 08:00 BP 138/72 06/16/20 08:06 Pulse Ox 93 06/16/20 08:00 Body Mass Index 21.0 Comfortable, no distress No pallor, icterus or cyanosis HEENT -unremarkable JVD- normal Cardiac- tachycardic, 3/6 JO aortic area, no gallops but difficult to assess due to tachycardia. Respiratory-normal breath sounds bilaterally, no crackles, no wheeze Abdomen- soft, nontender Neuro- alert and oriented Lower extremities- no significant edema, warm well perfused Results Labs and Meds Result diagrams: 06/16/20 05:51 06/16/20 05:51 Lab results: Laboratory Results - last 24 hr 06/15/20 06/15/20 06/15/20 10:11 16:03 16:03 WBC RBC Hgb Hct MCV MCH MCHC RDW Plt Count MPV Immature Gran % (Auto) Neut % (Auto) Lymph % (Auto) [place] % (Auto) Eos % (Auto) Baso % (Auto) Lymph # (Auto) [place] # (Auto) Eos # (Auto) Baso # (Auto) Abs Immat Gran (auto) Absolute Neuts (auto) Absolute Nucleated RBC Nucleated RBC % (auto) PT 18.2 H INR 1.5 H PTT (Heparin Protocol) 34.4 L 43.6 L D Sodium Potassium Chloride Carbon Dioxide Anion Gap BUN Creatinine Estim Creat Clear Calc Estimated GFR POC Glucose Random Glucose Calcium Total Bilirubin Direct Bilirubin AST ALT Alkaline Phosphatase Troponin I High Sens Total Protein Albumin Vancomycin Trough 06/15/20 06/15/20 06/16/20 18:00 23:16 00:12 WBC RBC Hgb Hct MCV MCH MCHC RDW Plt Count MPV Immature Gran % (Auto) Neut % (Auto) Lymph % (Auto) [place] % (Auto) Eos % (Auto) Baso % (Auto) Lymph # (Auto) [place] # (Auto) Eos # (Auto) Baso # (Auto) Abs Immat Gran (auto) Absolute Neuts (auto) Absolute Nucleated RBC Nucleated RBC % (auto) PT INR PTT (Heparin Protocol) 55.2 D 49.0 L Sodium Potassium Chloride Carbon Dioxide Anion Gap BUN Creatinine Estim Creat Clear Calc Estimated GFR POC Glucose 118 H Random Glucose Calcium Total Bilirubin Direct Bilirubin AST ALT Alkaline Phosphatase Troponin I High Sens Total Protein Albumin Vancomycin Trough 06/16/20 06/16/20 06/16/20 05:51 05:51 05:51 WBC 18.0 H RBC 2.72 L Hgb 8.2 L Hct 25.3 L MCV 93.0 MCH 30.1 MCHC 32.4 RDW 14.0 Plt Count 312 MPV 8.9 L Immature Gran % (Auto) 2.4 H Neut % (Auto) 85.2 H Lymph % (Auto) 8.2 L [place] % (Auto) 4.0 Eos % (Auto) 0.1 Baso % (Auto) 0.1 Lymph # (Auto) 1.5 [place] # (Auto) 0.7 Eos # (Auto) 0.0 Baso # (Auto) 0.0 Abs Immat Gran (auto) 0.43 H Absolute Neuts (auto) 15.4 H Absolute Nucleated RBC 0.000 Nucleated RBC % (auto) 0.0 PT INR PTT (Heparin Protocol) Sodium 133 L Potassium 4.2 Chloride 107 Carbon Dioxide 14 L Anion Gap 16 BUN 27 H Creatinine 0.84 Estim Creat Clear Calc 61.7 Estimated GFR > 60 POC Glucose Random Glucose 101 Calcium 7.5 L Total Bilirubin 1.4 H Direct Bilirubin 1.1 H AST 1561 H ALT 861 H Alkaline Phosphatase 1358 H D Troponin I High Sens 937.1 H D Total Protein 5.3 L Albumin 2.4 L Vancomycin Trough 06/16/20 06/16/20 06/16/20 05:51 05:51 08:19 WBC Cancelled RBC Cancelled Hgb Cancelled Hct Cancelled MCV Cancelled MCH Cancelled MCHC Cancelled RDW Cancelled Plt Count Cancelled MPV Cancelled Immature Gran % (Auto) Neut % (Auto) Lymph % (Auto) [place] % (Auto) Eos % (Auto) Baso % (Auto) Lymph # (Auto) [place] # (Auto) Eos # (Auto) Baso # (Auto) Abs Immat Gran (auto) Absolute Neuts (auto) Absolute Nucleated RBC Cancelled Nucleated RBC % (auto) Cancelled PT 17.8 H INR 1.5 H PTT (Heparin Protocol) Sodium Potassium Chloride Carbon Dioxide Anion Gap BUN Creatinine Estim Creat Clear Calc Estimated GFR POC Glucose Random Glucose Calcium Total Bilirubin Direct Bilirubin AST ALT Alkaline Phosphatase Troponin I High Sens Total Protein Albumin Vancomycin Trough 13.2 06/16/20 08:19 WBC RBC Hgb Hct MCV MCH MCHC RDW Plt Count MPV Immature Gran % (Auto) Neut % (Auto) Lymph % (Auto) [place] % (Auto) Eos % (Auto) Baso % (Auto) Lymph # (Auto) [place] # (Auto) Eos # (Auto) Baso # (Auto) Abs Immat Gran (auto) Absolute Neuts (auto) Absolute Nucleated RBC Nucleated RBC % (auto) PT INR PTT (Heparin Protocol) 59.2 D Sodium Potassium Chloride Carbon Dioxide Anion Gap BUN Creatinine Estim Creat Clear Calc Estimated GFR POC Glucose Random Glucose Calcium Total Bilirubin Direct Bilirubin AST ALT Alkaline Phosphatase Troponin I High Sens Total Protein Albumin Vancomycin Trough Progress Note: A&P Assessment and plan (1) Atrial fibrillation with rapid ventricular response: Status: Acute (2) Non-rheumatic aortic stenosis: Status: Acute (3) Gram-positive bacteremia: Status: Acute Assessment and Plan: Echocardiogram with severe aortic stenosis with a peak of 127 mm Hg and mean of 81mm Hg. Calculated valve area 0.6 sq cm. She also has mild pulmonary hypertension. LVEF seems preserved. She is still on Cardizem drip. She continues to deny any clear cardiac symptoms. Positive blood cultures noted of uncertain source. If there is no other etiology, then will need to look at possibility of endocarditis as well. Because of significant aortic valve stenosis /calcification, difficult to assess for endocarditis by transthoracic study. She may need RENAE along with cardioversion, but the severe aortic stenosis makes cardioversion somewhat risky. For now, continue Cardizem drip. Continue beta-blockers. Continue maintenance digoxin. Continue anticoagulation. Continue with antibiotics as well. Will discuss with [facility] about transfer for further care. Fall Risk Details Current Medications: Current Medications Generic Name Dose Route Start Last Admin Trade Name Freq PRN Reason Stop Dose Admin Acetaminophen 650 mg 06/15/20 07:53 06/16/20 02:17 Acetaminophen 325 Mg Tablet PO 650 mg Q6H PRN Administration PAIN Heparin Sodium (Porcine) 4,880 unit 06/15/20 09:38 Heparin Sodium,Porcine 5,000 Unit/Ml Vial 80 unit/kg (4880 unit) IVPUSH BOLUS PRN 80 unit/kg - Heparin Protocol Heparin Sodium (Porcine) 2,440 unit 06/15/20 09:38 06/15/20 17:51 Heparin Sodium,Porcine 5,000 Unit/Ml Vial 40 unit/kg (2440 unit) 2,440 unit IVPUSH Administration BOLUS PRN HEPARINPRO Diltiazem HCl 125 mg/ Sodium 125 mls @ 0 mls/hr 06/14/20 15:45 06/16/20 07:33 Chloride IVCONT 10 mg/hr .Q0M KENYATTA 10 mls/hr Titration Protocol Per Protocol Piperacillin Sod/Tazobactam 50 mls @ 100 mls/hr 06/15/20 01:00 06/16/20 07:05 Sod 3.375 gm/ Sodium Chloride IV Infused Q6H KENYATTA Infusion Sodium Chloride 1,000 mls @ 100 mls/hr 06/15/20 08:45 06/16/20 06:38 Ns IVCONT Not Given .Q10H KENYATTA Vancomycin HCl 750 mg/ Sodium 265 mls @ 265 mls/hr 06/15/20 10:00 06/15/20 22:37 Chloride IV Infused Q12H KENYATTA Infusion Heparin Sodium/Sodium Chloride 25,000 unit in 250 mls @ 0 mls/hr 06/15/20 09:45 06/16/20 01:59 IVCONT 16 units/kg/hr .Q0M KENYATTA 9.76 mls/hr Titration Protocol Per Protocol Lorazepam 0.5 mg 06/15/20 18:04 06/15/20 18:54 Lorazepam 2 Mg/Ml Vial IVPUSH 0.5 mg Q6H PRN Administration Anxiety Metoprolol Tartrate 50 mg 06/15/20 09:00 06/16/20 08:06 Metoprolol Tartrate 50 Mg Tablet PO 50 mg QID KENYATTA Administration Protocol Morphine Sulfate 1 mg 06/15/20 18:04 06/15/20 18:54 Morphine Sulfate 2 Mg/Ml Cartridge IVPUSH 1 mg Q4H PRN Administration Pain and Fever Ondansetron HCl 4 mg 06/15/20 07:53 Ondansetron Hcl 4 Mg/2 Ml Vial IVPUSH Q8H PRN Nausea Sodium Bicarbonate 650 mg 06/15/20 21:00 06/16/20 08:06 Sodium Bicarbonate 650 Mg Tablet PO 650 mg BID KENYATTA Administration Sodium Chloride 3 ml 06/15/20 00:00 06/16/20 08:08 0.9 % Sodium Chloride Flush 3 Ml Syringe IVFLUSH 3 ml QSHIFT KENYATTA Administration Time Spent With Patient Time: Total time spent is greater than 50% in coordination of care (as documented) at patient's floor/unit and/or counseling patient: Time with patient: 25 - 35 minutes Procedures Abscess I/D Date of Service: 06/16/20
[2020-06-16] MEDS: Heparin Sodium,Porcine/1/2NS 25,000 UNIT/250 ML IV.SOLN 9.76 UNIT IVCONT (10:48)
[2020-06-16] MEDS: vancomycin HCL 750 MG in 0.9 % Sodium Chloride 250 ML 125 MG IV (10:50)
[2020-06-16] MEDS: ondansetron HCL 4 MG/2 ML VIAL IVPUSH (10:53)
[2020-06-16 11:45] LABS: Digoxin 1.8 ng/mL (0.8-2.0)
[2020-06-16 12:00] VITALS: BP 96/61; PULSE 115; RESP 20; TEMP 36.4; O2SAT 90
--- NOTE | 2020-06-16 12:08 | P.DS_ITS ---
DS: Providers Provider Date of admission: 06/14/20 21:22 Primary care physician: None Physician Consults: 06/14/20 19:39 Consult to Cardiology Routine Consulting Provider: Arvind Acosta Reason for consultation: afib rvr Has provider been notified: No 06/14/20 22:34 Consult to Infectious Diseases Routine Consulting Provider: Infectious Disease Reason for consultation: suspected sepsis Has provider been notified: No 06/15/20 15:30 Consult to Gastroenterology Routine Consulting Provider: Rachelle Aranda Reason for consultation: distended gallbladder, mildly prominent common bile duct, bacteremia 06/15/20 15:33 Consult to General Surgery Routine Consulting Provider: Jon Singletary Reason for consultation: sbo Has provider been notified: No DS: Diagnosis Discharge Diagnosis (1) Acute cholecystitis: Status: Acute (2) Atrial fibrillation with rapid ventricular response: Status: Acute (3) Non-rheumatic aortic stenosis: Status: Acute (4) Gram-positive bacteremia: Status: Acute (5) Elevated LFTs: Status: Acute DS: Medications Discharge Medications Home Medications: Previous Rx's Medication Instructions Recorded diltiazem HCl in 0.9% NaCl See Rx Instructions .ROUTE 06/16/20 .COMPLEX #1 ml heparin(porcine) in 0.45% NaCl 25,000 unit CONTINUOUS IV INFUSION 06/16/20 .Q0M #1 ml metoprolol tartrate 50 mg PO QID #1 tab 06/16/20 ondansetron HCl (PF) 4 mg IVPUSH Q8H PRN #1 ml 06/16/20 piperacillin-tazobactam 3.375 g IV Q6H #1 ea 06/16/20 sodium bicarbonate 650 mg PO BID #1 tab 06/16/20 vancomycin in 0.9 % sodium chl 750 mg IV Q12H #1 ml 06/16/20 DS: Summary Hospital Course Hospital Course: HPI From the admission H&P: this is a 69-year-old female who has not seen a physician in the past 10 years who presents to the emergency department with generalized weakness. She has been feeling queasy with generalized malaise. She has had decreased p.o. intake but has been able to tolerate fluid. She denies any chest pain, palpitations, dizziness, abdominal pain, diarrhea, fever, chills. she traveled to [facility] almost 1 month ago otherwise no recent travel. She denies any recent sick c ontacts. She does report some low back pain. Denies any urinary sympoms. She was seen 06/10 in the outpatient clinic for the same. At that time her heart rate was noted to be in the 48. Today on arrival she was noted to be significantly tachycardic with a heart rate over 200. She received 2 doses of adenosine and atrial fibrillation with rapid ventricular response was revealed. she was given bolus doses of IV Cardizem and then started on Cardizem drip. She was then given a dose of oral metoprolol as well as digoxin. Her heart rate remained fluctuating between the 140s and 170s. Her lab work also revealed leukocytosis of 29,000, H/ H of 11.3/34.6, creatinine 1.42 with an anion gap of 26 and bicarb of 13. LFTs were mildly elevated and alk-phos was 483. Troponin was to 2062.7 and BNP 1239. chest x-ray was unremarkable. patient's blood pressure has remained soft in the 90s. Hospital Course by problems 1. A. Fib with RVR / elevated HS-trop-I / severe Patient presented with a. fib with rvr. Was started on cardizem and heparin drip. HR remained difficult to control and metoprolol + digoxin were added (loaded on 06/15/20). SHe will be transferred on dig 125mcg daily + cardizem gtt (at 10mg/hr at this time) + metoprolol 50mg qid. HR on the AM of transfer has been 90-100s mostly. She underwent 2d echo which showed LVEF of 55-60 and severe (see details below) 2. Sepsis / elevated LFTs / Acute Cholecystitis / Gram Positive Bacteremia Patient presented with leukocytosis, but no clear source of infection was identified upon admission. She has mild transaminitis upon admission (61/54, AST/ALT) which were felt 2/2 to possible chronic alcohol use. They trended up to 1561/861 at the time of discharge. Her initially blood cx returned positive for GPC and ID consultation recommended eval for intraabdominal source of infection. A CT abd/pelvis with contrast + abd ultrasound was done which showed signs of acute cck. No CBD stone was appreciated. [facility] surgery was consulted and felt patient should have IR guided cholecysostomy tube. However, due to her cardiac issues as above -- cardiology recommend [place] [facility] as she was high risk. She will be continued on vancomcyin/zosyn at this time. 3. Heavy alcohol use Has not exhibited signs of alcohol withdrawal at the time of transfer. COVID tested completed up on admission on 06/14/2020 -- negative at that time. Time Spent with Patient Time attestation: Total time spent providing and/or coordinating discharge services: Physical Exam Vital Signs: Vital Signs: Last Vital Signs Temp 97.7 F 06/16/20 08:00 Pulse 126 H 06/16/20 08:06 Resp 20 06/16/20 08:00 BP 138/72 06/16/20 08:06 Pulse Ox 93 06/16/20 08:00 Body Mass Index 21.0 General - no acute distress, emotional regarding her on going medical issues Cardiovascular - IRR< rates 90-100s Lungs - no distress Abdomen - soft, RUQ tenderness without rebound or guarding Extremities - no edema bilaterally Neuro - awake and alert, no focal deficits DS: Data Data Completed and Pending Labs on day of discharge: Laboratory Last Values WBC 18.0 X10*3/uL (4.8-10.8) H 06/16/20 05:51 WBC Cancelled 06/16/20 05:51 RBC 2.72 X10*6/uL (4.20-5.50) L 06/16/20 05:51 RBC Cancelled 06/16/20 05:51 Hgb 8.2 g/dl (12.0-16.0) L 06/16/20 05:51 Hgb Cancelled 06/16/20 05:51 Hct 25.3 % (37-47) L 06/16/20 05:51 Hct Cancelled 06/16/20 05:51 MCV 93.0 fL (80-98) 06/16/20 05:51 MCV Cancelled 06/16/20 05:51 MCH 30.1 pg (27.0-33.0) 06/16/20 05:51 MCH Cancelled 06/16/20 05:51 MCHC 32.4 g/dl (31.0-35.0) 06/16/20 05:51 MCHC Cancelled 06/16/20 05:51 RDW 14.0 % (11.0-16.0) 06/16/20 05:51 RDW Cancelled 06/16/20 05:51 Plt Count 312 X10*3/uL (160-400) 06/16/20 05:51 Plt Count Cancelled 06/16/20 05:51 MPV 8.9 fL (9.4-12.3) L 06/16/20 05:51 MPV Cancelled 06/16/20 05:51 Immature Gran % (Auto) 2.4 % (0.0-0.4) H 06/16/20 05:51 Neut % (Auto) 85.2 % (45-73) H 06/16/20 05:51 Lymph % (Auto) 8.2 % (20-40) L 06/16/20 05:51 [place] % (Auto) 4.0 % (2-11) 06/16/20 05:51 Eos % (Auto) 0.1 % (0-4) 06/16/20 05:51 Baso % (Auto) 0.1 % (0-2) 06/16/20 05:51 Lymph # (Auto) 1.5 X10*3/uL (1.2-4.9) 06/16/20 05:51 [place] # (Auto) 0.7 X10*3/uL (0.1-1.2) 06/16/20 05:51 Eos # (Auto) 0.0 X10*3/uL (0.0-0.4) 06/16/20 05:51 Baso # (Auto) 0.0 X10*3/uL (0.0-0.2) 06/16/20 05:51 Abs Immat Gran (auto) 0.43 X10*3/uL (0.00-0.03) H 06/16/20 05:51 Absolute Neuts (auto) 15.4 X10*3/uL (2.0-8.3) H 06/16/20 05:51 Absolute Nucleated RBC 0.000 X10*3/uL (0.0-0.012) 06/16/20 05:51 Absolute Nucleated RBC Cancelled 06/16/20 05:51 Nucleated RBC % (auto) 0.0 /100WBC (0.0-0.2) 06/16/20 05:51 Nucleated RBC % (auto) Cancelled 06/16/20 05:51 Smear Tech's Comments VERIFIED 06/15/20 04:42 PT 17.8 SEC (10.8-13.0) H 06/16/20 05:51 INR 1.5 (0.9-1.1) H 06/16/20 05:51 APTT 37.3 SEC (24.1-38.0) 06/14/20 18:03 PTT (Heparin Protocol) 59.2 SEC (53-77.9) D 06/16/20 08:19 Sodium 133 mmol/L (135-145) L 06/16/20 05:51 Potassium 4.2 mmol/l (3.3-5.1) 06/16/20 05:51 Chloride 107 mmol/L (96-108) 06/16/20 05:51 Carbon Dioxide 14 mmol/L (22-29) L 06/16/20 05:51 Anion Gap 16 (12-20) 06/16/20 05:51 BUN 27 mg/dL (9-16) H 06/16/20 05:51 Creatinine 0.84 mg/dL (0.5-1.4) 06/16/20 05:51 Estim Creat Clear Calc 61.7 06/16/20 05:51 Estimated GFR > 60 06/16/20 05:51 POC Glucose 118 mg/dL (60-115) H 06/15/20 18:00 Random Glucose 101 mg/dL (60-115) 06/16/20 05:51 Lactic Acid 1.3 mmol/L (0.5-2.0) 06/14/20 19:06 Calcium 7.5 mg/dL (8.4-10.2) L 06/16/20 05:51 Magnesium 2.2 mg/dL (1.6-2.6) 06/14/20 15:19 Total Bilirubin 1.4 mg/dL (0.0-1.0) H 06/16/20 05:51 Direct Bilirubin 1.1 mg/dL (0.0-0.5) H 06/16/20 05:51 GGT 475 U/L (7-33) H 06/14/20 15:21 AST 1561 U/L (5-31) H 06/16/20 05:51 ALT 861 U/L (0-31) H 06/16/20 05:51 Alkaline Phosphatase 1358 U/L (39-117) H D 06/16/20 05:51 Troponin I High Sens 937.1 ng/L (<3.5-17.0) H D 06/16/20 05:51 B-Natriuretic Peptide 1293 pg/mL (<100) H 06/14/20 15:20 Total Protein 5.3 g/dL (6.5-8.0) L 06/16/20 05:51 Albumin 2.4 g/dL (3.5-5.0) L 06/16/20 05:51 TSH 0.68 uIU/mL (0.32-4.0) 06/15/20 04:42 TSH Cancelled 06/15/20 04:42 Urine Color DARK YELLOW 06/14/20 19:36 Urine Appearance CLEAR 06/14/20 19:36 Urine pH 5.5 (5.0-8.0) 06/14/20 19:36 Ur Specific [place] 1.025 (1.005-1.025) 06/14/20 19:36 Urine Protein 1+ MG/DL (NEG-TRACE) H 06/14/20 19:36 Urine Glucose (UA) NEG MG/DL (NEG) 06/14/20 19:36 Urine Ketones 15 MG/DL (NEG) 06/14/20 19:36 Urine Blood 2+ (NEG) H 06/14/20 19:36 Urine Nitrite NEG (NEG) 06/14/20 19:36 Ur Leukocyte Esterase NEG (NEG) 06/14/20 19:36 Urine RBC 5-9 /HPF (0) H 06/14/20 19:36 Urine WBC 1-4 /HPF (0-4) 06/14/20 19:36 Ur Squamous Epith Cells 1+ /LPF 06/14/20 19:36 Amorphous Sediment TRACE /LPF 06/14/20 19:36 Urine Bacteria NONE /LPF 06/14/20 19:36 Hyaline Casts 0-2 /LPF 06/14/20 19:36 Vancomycin Trough 13.2 mcg/mL (10.0-20.0) 06/16/20 08:19 Digoxin 1.8 ng/mL (0.8-2.0) 06/16/20 10:41 Salicylates < 5.0 mg/dL (15-30) L 06/14/20 19:06 Urine Opiates Screen Not Detected (Not Detect) 06/14/20 19:36 Ur Barbiturates Screen Not Detected (Not Detect) 06/14/20 19:36 Ur Phencyclidine Scrn Not Detected (Not Detect) 06/14/20 19:36 Ur Amphetamines Screen Not Detected (Not Detect) 06/14/20 19:36 U Benzodiazepines Scrn Not Detected (Not Detect) 06/14/20 19:36 Urine Cocaine Screen Not Detected (Not Detect) 06/14/20 19:36 U Marijuana (THC) Screen Not Detected (Not Detect) 06/14/20 19:36 Ethyl Alcohol < 10 mg/dL 06/14/20 18:15 COVID-19 (POLI) Negative (Negative) 06/14/20 15:40 COVID-19 Clin Com See Note 06/14/20 15:40 Preliminary micro results at discharge 06/14/20 19:15 Blood Culture - Preliminary Blood - Venous Streptococcus species 06/14/20 19:10 Blood Culture - Preliminary Blood - Venous Streptococcus species Conclusions: - The left ventricular systolic function is normal. The visually estimated ejection fraction is between 55-60%. - There is severe aortic valve stenosis. The peak aortic velocity is 5.64 m/s with a calculated peak gradient of 127 mmHg. The mean gradient is 81 mmHg. The aortic valve area is 0.62 cm2. There is mild aortic valve regurgitation. - There is moderate mitral annular calcification. - There is mild to moderate tricuspid valve regurgitation. - Mild pulmonary hypertension is present. - There is mild dilatation of the ascending aorta measuring 3.60 cm. Discharge Plan Discharge Patient Disposition: Xfer [facility] Referrals: Physician,None [Primary Care Provider] - Discharge Medications: New piperacillin-tazobactam 3.375 gram Recon Soln 3.375 g IV Q6H Qty: 1 RF: 0 vancomycin in 0.9 % sodium chl 1 gram/250 mL solution 750 mg IV Q12H Qty: 1 RF: 0 heparin(porcine) in 0.45% NaCl 25,000 unit/250 mL Parenteral Solution 25,000 unit continuous IV infusion .Q0M Qty: 1 RF: 0 metoprolol tartrate 50 mg Tablet 50 mg PO QID Qty: 1 RF: 0 diltiazem HCl in 0.9% NaCl 125 mg/125 mL (1 mg/mL) solution See Rx Instructions .ROUTE .COMPLEX Qty: 1 RF: 0 sodium bicarbonate 650 mg Tablet 650 mg PO BID Qty: 1 RF: 0 ondansetron HCl (PF) 4 mg/2 mL Solution 4 mg IVPUSH Q8H PRN (Reason: Nausea) Qty: 1 RF: 0 digoxin 125 mcg (0.125 mg) tablet 125 mcg PO DAILY Qty: 30 RF: 0 Discharge Orders: Discharge Order (Routine); Ordered 06/16/20 Ordered By: Kolby Germain Diet: advance to usual diet Activity on Discharge: As tolerated Visit Report Forms: Patient Portal Discharge page Care Plan Goals: To go to [facility] and get treatement for my cardiac and gall bladder issue Health Concerns: Gall bladder and heart issues Plan of Treatment: Gall bladder and heart issues -- being transferred to [facility]
--- NOTE | 2020-06-16 12:43 | PC.NURSE ---
pt c/o nausea, zofran given. md at bedside to explain plan of care and transfer to [facility] [place]. called and updated on transfer.
[2020-06-16 12:52] VITALS: O2SAT 96
[2020-06-16 13:54] VITALS: BP 123/62; PULSE 97
[2020-06-16 14:38] LABS: PTT Heparin Drip 52.3 SEC (53-77.9)
== END 2020-06-16 14:30 | disposition short-term general hospital (02) | DRG 872 ==
LOC: HO.ED 17:08 → HO.IMC 21:33
PROVIDERS: Hospitalist; Internal Medicine; Nurse Practitioner Acute Care; Physician Assistant Medical; Admitting Provider Internal Medicine; Emergency Provider Emergency Medicine; Visit Provider Family Medicine
DX: A41.9 Sepsis, unspecified organism (principal); K81.0 Acute cholecystitis; E87.2 Acidosis; I35.0 Nonrheumatic aortic (valve) stenosis; I48.91 Unspecified atrial fibrillation; D72.829 Elevated white blood cell count, unspecified; Z20.828 Contact with and (suspected) exposure to other viral communicable diseases; Z79.899 Other long term (current) drug therapy
CPT/HCPCS: 36415; 71045; 74177; 76705; 80048; 80076; 80162; 80202; 80307; 80320; 81001; 82947; 82977; 83605; 83735; 83880; 84443; 84484; 85025; 85027; 85610; 85730; 87040; 87077; 87186; 87635; 93005; 93306; 96361; 96372; 96374; 96375; 99285; 99291; 99292; G0480; J0153; J1160; J1650; J2060; J2270; J2405; J2543; J3370; Q9967